=== PATIENT | female | born 1940 | race Caucasian/White ===

== ENCOUNTER 2018-05-03 16:22 | Inpatient (IN) | payer MEDICARE, BC ==
[2018-05-03] MEDS: Acetaminophen 500 MG TAB PO SCH (18:43)
[2018-05-03] MEDS: Ampicillin/Sulbactam 3 GM VIAL IVPB SCH (20:48)
[2018-05-03] MEDS: Gabapentin 300 MG CAP PO SCH (21:02)
[2018-05-03] MEDS: Ascorbic Acid 500 mg Chewable Tablet PO SCH (21:02)
[2018-05-03] MEDS: Atorvastatin Calcium 40 MG TAB PO SCH (21:02)
[2018-05-03] MEDS: Saccharomyces boulardii 250 MG CAP PO SCH (21:03)
[2018-05-03] MEDS: Fish Oil 1,000 MG CAP PO SCH (21:03)
[2018-05-03] MEDS: Bisoprolol Fumarate/HCTZ 10 mg/6.25 mg Tablet PO SCH (21:05)
[2018-05-03] MEDS: traMADol HCl 50 MG TAB PO PRN (21:49)
[2018-05-03] MEDS: Zolpidem Tartrate 5 MG TAB PO PRN (21:50)
[2018-05-04] MEDS: Acetaminophen 500 MG TAB PO SCH ×4 (00:39→16:40)
[2018-05-04] MEDS: Ampicillin/Sulbactam 3 GM VIAL IVPB SCH ×2 (01:56→08:46)
[2018-05-04] MEDS: Ferrous Sulfate 325 MG TAB PO SCH ×2 (08:47→16:40)
[2018-05-04] MEDS: Multivitamin W/ Minerals 1 TAB PO SCH (08:48)
[2018-05-04] MEDS: Allopurinol 100 MG TAB PO SCH (08:48)
[2018-05-04] MEDS: Folic Acid 1 MG TAB PO SCH (08:48)
[2018-05-04] MEDS: Ascorbic Acid 500 mg Chewable Tablet PO SCH ×2 (08:49→20:26)
[2018-05-04] MEDS: NIFEdipine XL 30 MG TAB PO SCH (08:49)
[2018-05-04] MEDS: Calcium Carbonate 500 MG TAB PO SCH (08:49)
[2018-05-04] MEDS: Enoxaparin Sodium 30 MG/0.3 ML SYRINGE SC SCH (08:50)
[2018-05-04] MEDS: Bisoprolol Fumarate/HCTZ 10 mg/6.25 mg Tablet PO SCH ×3 (08:50→20:26)
[2018-05-04] MEDS: Amiodarone 200 MG TAB PO SCH (08:50)
[2018-05-04] MEDS: Saccharomyces boulardii 250 MG CAP PO SCH (09:09)
[2018-05-04] MEDS ORDERED: Saccharomyces boulardii 250 MG CAP PO SCH (10:00)
[2018-05-04] MEDS: Ampicillin/Sulbactam 3 GM in Sodium Chloride 0.9% 100 ML IVPB SCH ×2 (14:17→20:15)
[2018-05-04] MEDS: traMADol HCl 50 MG TAB PO PRN (16:42)
[2018-05-04] MEDS: Fish Oil 1,000 MG CAP PO SCH (20:26)
[2018-05-04] MEDS: Atorvastatin Calcium 40 MG TAB PO SCH (20:26)
[2018-05-04] MEDS: Gabapentin 300 MG CAP PO SCH (20:26)
[2018-05-04] MEDS: Zolpidem Tartrate 5 MG TAB PO PRN (21:42)
[2018-05-05] MEDS: Acetaminophen 500 MG TAB PO SCH ×3 (00:30→13:00)
[2018-05-05] MEDS: Ampicillin/Sulbactam 3 GM in Sodium Chloride 0.9% 100 ML IVPB SCH ×4 (01:30→19:34)
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
[2018-05-05] MEDS: Enoxaparin Sodium 30 MG/0.3 ML SYRINGE SC SCH (09:40)
[2018-05-05] MEDS: HYDROcodone/Acetaminophen 10/325 mg Tablet PO PRN (09:42)
[2018-05-05] MEDS: Saccharomyces boulardii 250 MG CAP PO SCH (09:42)
[2018-05-05] MEDS: Calcium Carbonate 500 MG TAB PO SCH (09:42)
[2018-05-05] MEDS: Multivitamin W/ Minerals 1 TAB PO SCH (09:44)
[2018-05-05] MEDS: NIFEdipine XL 30 MG TAB PO SCH (09:44)
[2018-05-05] MEDS: Allopurinol 100 MG TAB PO SCH (09:45)
[2018-05-05] MEDS: Amiodarone 200 MG TAB PO SCH (09:45)
[2018-05-05] MEDS: Folic Acid 1 MG TAB PO SCH (09:45)
[2018-05-05] MEDS: Ferrous Sulfate 325 MG TAB PO SCH ×2 (09:45→17:07)
[2018-05-05] MEDS: Bisoprolol Fumarate/HCTZ 10 mg/6.25 mg Tablet PO SCH ×2 (09:45→20:32)
[2018-05-05] MEDS: Ascorbic Acid 500 mg Chewable Tablet PO SCH ×2 (09:46→20:32)
[2018-05-05] MEDS: traMADol HCl 50 MG TAB PO PRN (15:22)
[2018-05-05] MEDS: Gabapentin 300 MG CAP PO SCH (20:32)
[2018-05-05] MEDS: Fish Oil 1,000 MG CAP PO SCH (20:32)
[2018-05-05] MEDS: Atorvastatin Calcium 40 MG TAB PO SCH (20:32)
[2018-05-05] MEDS: Zolpidem Tartrate 5 MG TAB PO PRN (21:10)
[2018-05-06] MEDS: Ampicillin/Sulbactam 3 GM in Sodium Chloride 0.9% 100 ML IVPB SCH ×4 (01:26→20:36)
[2018-05-06] MEDS: Folic Acid 1 MG TAB PO SCH (08:15)
[2018-05-06] MEDS: Allopurinol 100 MG TAB PO SCH (08:16)
[2018-05-06] MEDS: Amiodarone 200 MG TAB PO SCH (08:16)
[2018-05-06] MEDS: Saccharomyces boulardii 250 MG CAP PO SCH (08:16)
[2018-05-06] MEDS: Multivitamin W/ Minerals 1 TAB PO SCH (08:16)
[2018-05-06] MEDS: Bisoprolol Fumarate/HCTZ 10 mg/6.25 mg Tablet PO SCH ×2 (08:17→20:39)
[2018-05-06] MEDS: Ascorbic Acid 500 mg Chewable Tablet PO SCH ×2 (08:17→20:40)
[2018-05-06] MEDS: Ferrous Sulfate 325 MG TAB PO SCH ×2 (08:17→17:57)
[2018-05-06] MEDS: Calcium Carbonate 500 MG TAB PO SCH (08:17)
[2018-05-06] MEDS: NIFEdipine XL 30 MG TAB PO SCH (08:17)
[2018-05-06] MEDS: Enoxaparin Sodium 30 MG/0.3 ML SYRINGE SC SCH (08:18)
[2018-05-06] MEDS: traMADol HCl 50 MG TAB PO PRN (08:24)
[2018-05-06] MEDS: HYDROcodone/Acetaminophen 10/325 mg Tablet PO PRN (20:38)
[2018-05-06] MEDS: Atorvastatin Calcium 40 MG TAB PO SCH (20:39)
[2018-05-06] MEDS: Fish Oil 1,000 MG CAP PO SCH (20:39)
[2018-05-06] MEDS: Gabapentin 300 MG CAP PO SCH (20:40)
[2018-05-06] MEDS: Zolpidem Tartrate 5 MG TAB PO PRN (21:05)
[2018-05-07] MEDS: Ampicillin/Sulbactam 3 GM in Sodium Chloride 0.9% 100 ML IVPB SCH ×4 (01:31→20:52)
[2018-05-07 05:30] LABS: #Basophils 0.1 thou/uL (0.0-0.2); #Eosinphils 0.4 thou/uL (0.0-0.7); #Lymphocytes 1.1 thou/uL (1.20-3.40); #Monocytes 0.8 thou/uL (0.11-0.59); #Neutrophils 6.7 thou/uL (1.40-6.50); %Basophils 1.2 % (0.0-1.0); %Eosinophils 4.9 % (0.0-10.0); %Lymphocytes 11.6 % (21.0-51.0); %Monocytes 8.5 % (0.0-10.0); %Neutrophils 73.7 % (42.0-75.0); Hemoglobin 8.7 g/dL (12.0-16.0); Mean Corpuscular HGB CONC 35.1 g/dL (32.0-36.0); Mean Corpuscular Hemoglobin 29.6 pg (27.0-31.0); Mean Corpuscular Volume 84.5 fL (78.0-98.0); Mean Platelet Volume 6.2 fL (7.4-10.4); Platelet Count 396 thou/uL (130-400); Red Blood Cell (RBC) Count 2.93 mill/uL (4.20-5.40)
[2018-05-07 05:46] LABS: ALT (SGPT) 41 U/L (8-55); AST (SGOT) 24 U/L (5-34); Albumin 2.9 g/dL (3.4-4.8); Alkaline Phosphatase 61 U/L (40-150); Anion Gap 12 mmol/L (10-20); BUN (Urea Nitrogen) 19 mg/dL (9.8-20.1); Bilirubin, Total 0.3 mg/dL (0.2-1.2); Calc. Creatinine Clearance 48 mL/min (70-130); Calcium 8.6 mg/dL (7.8-10.44); Carbon Dioxide 25 mmol/L (23-31); Chloride 107 mmol/L (98-107); Estimated GFR-MDRD 65; Globulin 2.6 g/dL (2.4-3.5); Glucose 120 mg/dL (83-110); Potassium 3.2 mmol/L (3.5-5.1); Protein, Total 5.5 g/dL (6.0-8.3); Sodium 141 mmol/L (136-145)
[2018-05-07] MEDS: Folic Acid 1 MG TAB PO SCH (09:07)
[2018-05-07] MEDS: Allopurinol 100 MG TAB PO SCH (09:07)
[2018-05-07] MEDS: Bisoprolol Fumarate/HCTZ 10 mg/6.25 mg Tablet PO SCH ×2 (09:07→20:54)
[2018-05-07] MEDS: Multivitamin W/ Minerals 1 TAB PO SCH (09:08)
[2018-05-07] MEDS: Amiodarone 200 MG TAB PO SCH (09:08)
[2018-05-07] MEDS: NIFEdipine XL 30 MG TAB PO SCH (09:08)
[2018-05-07] MEDS: Calcium Carbonate 500 MG TAB PO SCH (09:08)
[2018-05-07] MEDS: Ascorbic Acid 500 mg Chewable Tablet PO SCH ×2 (09:09→20:54)
[2018-05-07] MEDS: Saccharomyces boulardii 250 MG CAP PO SCH (09:09)
[2018-05-07] MEDS: Ferrous Sulfate 325 MG TAB PO SCH ×2 (09:09→16:53)
[2018-05-07] MEDS: HYDROcodone/Acetaminophen 10/325 mg Tablet PO PRN ×3 (09:13→21:04)
[2018-05-07] MEDS: Enoxaparin Sodium 30 MG/0.3 ML SYRINGE SC SCH (09:32)
[2018-05-07] MEDS ORDERED: Potassium Chloride 20 MEQ TAB PO SCH (10:00)
[2018-05-07] MEDS: traMADol HCl 50 MG TAB PO PRN (12:56)
[2018-05-07] MEDS: Atorvastatin Calcium 40 MG TAB PO SCH (20:54)
[2018-05-07] MEDS: Fish Oil 1,000 MG CAP PO SCH (20:54)
[2018-05-07] MEDS: Gabapentin 300 MG CAP PO SCH (20:54)
[2018-05-07] MEDS: Zolpidem Tartrate 5 MG TAB PO SCH (21:04)
[2018-05-08] MEDS: Potassium Chloride 20 MEQ TAB PO SCH (09:12)
[2018-05-08] MEDS: Saccharomyces boulardii 250 MG CAP PO SCH (09:13)
[2018-05-08] MEDS: Calcium Carbonate 500 MG TAB PO SCH (09:13)
[2018-05-08] MEDS: NIFEdipine XL 30 MG TAB PO SCH (09:13)
[2018-05-08] MEDS: Ferrous Sulfate 325 MG TAB PO SCH ×2 (09:14→18:40)
[2018-05-08] MEDS: Allopurinol 100 MG TAB PO SCH (09:14)
[2018-05-08] MEDS: Multivitamin W/ Minerals 1 TAB PO SCH (09:15)
[2018-05-08] MEDS: Folic Acid 1 MG TAB PO SCH (09:15)
[2018-05-08] MEDS: Bisoprolol Fumarate/HCTZ 10 mg/6.25 mg Tablet PO SCH ×2 (09:15→20:52)
[2018-05-08] MEDS: Amiodarone 200 MG TAB PO SCH (09:15)
[2018-05-08] MEDS: Ascorbic Acid 500 mg Chewable Tablet PO SCH ×2 (09:15→20:54)
[2018-05-08] MEDS: Enoxaparin Sodium 30 MG/0.3 ML SYRINGE SC SCH (09:16)
[2018-05-08] MEDS: traMADol HCl 50 MG TAB PO PRN (10:01)
[2018-05-08] MEDS: HYDROcodone/Acetaminophen 10/325 mg Tablet PO PRN (20:51)
[2018-05-08] MEDS: Gabapentin 300 MG CAP PO SCH (20:53)
[2018-05-08] MEDS: Zolpidem Tartrate 5 MG TAB PO SCH (20:53)
[2018-05-08] MEDS: Fish Oil 1,000 MG CAP PO SCH (20:54)
[2018-05-08] MEDS: Atorvastatin Calcium 40 MG TAB PO SCH (20:54)
[2018-05-09] MEDS: NIFEdipine XL 30 MG TAB PO SCH (08:50)
[2018-05-09] MEDS: Saccharomyces boulardii 250 MG CAP PO SCH (08:51)
[2018-05-09] MEDS: Enoxaparin Sodium 30 MG/0.3 ML SYRINGE SC SCH (08:51)
[2018-05-09] MEDS: Ascorbic Acid 500 mg Chewable Tablet PO SCH ×2 (08:51→20:37)
[2018-05-09] MEDS: Allopurinol 100 MG TAB PO SCH (08:51)
[2018-05-09] MEDS: Amiodarone 200 MG TAB PO SCH (08:52)
[2018-05-09] MEDS: Ferrous Sulfate 325 MG TAB PO SCH ×2 (08:52→17:42)
[2018-05-09] MEDS: Folic Acid 1 MG TAB PO SCH (08:52)
[2018-05-09] MEDS: Multivitamin W/ Minerals 1 TAB PO SCH (08:52)
[2018-05-09] MEDS: Potassium Chloride 20 MEQ TAB PO SCH (08:52)
[2018-05-09] MEDS: Calcium Carbonate 500 MG TAB PO SCH (08:53)
[2018-05-09] MEDS: Bisoprolol Fumarate/HCTZ 10 mg/6.25 mg Tablet PO SCH ×2 (08:58→20:35)
[2018-05-09] MEDS: HYDROcodone/Acetaminophen 10/325 mg Tablet PO PRN ×2 (11:02→20:33)
[2018-05-09] MEDS: Zolpidem Tartrate 5 MG TAB PO SCH (20:33)
[2018-05-09] MEDS: Fish Oil 1,000 MG CAP PO SCH (20:36)
[2018-05-09] MEDS: Gabapentin 300 MG CAP PO SCH (20:37)
[2018-05-09] MEDS: Atorvastatin Calcium 40 MG TAB PO SCH (20:37)
[2018-05-09] MEDS ORDERED: Nitroglycerin 2% Ointment 1 INCH/1 GM Packet ONE (23:45)
[2018-05-10 05:51] LABS: #Basophils 0.1 thou/uL (0.0-0.2); #Eosinphils 0.6 thou/uL (0.0-0.7); #Monocytes 0.8 thou/uL (0.11-0.59); #Neutrophils 6.9 thou/uL (1.40-6.50); %Basophils 1.3 % (0.0-1.0); %Lymphocytes 10.6 % (21.0-51.0); %Monocytes 8.6 % (0.0-10.0); %Neutrophils 73.5 % (42.0-75.0); Hemoglobin 9.4 g/dL (12.0-16.0); Mean Corpuscular HGB CONC 34.5 g/dL (32.0-36.0); Mean Corpuscular Hemoglobin 29.4 pg (27.0-31.0); Mean Corpuscular Volume 85.1 fL (78.0-98.0); Mean Platelet Volume 6.4 fL (7.4-10.4); Platelet Count 298 thou/uL (130-400); RBC Distribution Width 14.4 % (11.5-14.5); Red Blood Cell (RBC) Count 3.19 mill/uL (4.20-5.40); White Blood Cell (WBC) Count 9.4 thou/uL (4.8-10.8)
[2018-05-10 06:20] LABS: Anion Gap 13 mmol/L (10-20); BUN (Urea Nitrogen) 36 mg/dL (9.8-20.1); Calc. Creatinine Clearance 38 mL/min (70-130); Calcium 9.6 mg/dL (7.8-10.44); Carbon Dioxide 27 mmol/L (23-31); Chloride 100 mmol/L (98-107); Estimated GFR-MDRD 50; Glucose 114 mg/dL (83-110); Sodium 136 mmol/L (136-145)
[2018-05-10] MEDS: NIFEdipine XL 30 MG TAB PO SCH (08:24)
[2018-05-10] MEDS: Ferrous Sulfate 325 MG TAB PO SCH ×2 (08:24→17:23)
[2018-05-10] MEDS: Folic Acid 1 MG TAB PO SCH (08:26)
[2018-05-10] MEDS: HYDROcodone/Acetaminophen 10/325 mg Tablet PO PRN ×2 (08:27→20:56)
[2018-05-10] MEDS: Saccharomyces boulardii 250 MG CAP PO SCH (08:27)
[2018-05-10] MEDS: Amiodarone 200 MG TAB PO SCH (08:29)
[2018-05-10] MEDS: Allopurinol 100 MG TAB PO SCH (08:29)
[2018-05-10] MEDS: Multivitamin W/ Minerals 1 TAB PO SCH (08:30)
[2018-05-10] MEDS: Potassium Chloride 20 MEQ TAB PO SCH (08:30)
[2018-05-10] MEDS: Ascorbic Acid 500 mg Chewable Tablet PO SCH ×2 (08:30→22:21)
[2018-05-10] MEDS: Enoxaparin Sodium 30 MG/0.3 ML SYRINGE SC SCH (08:36)
[2018-05-10] MEDS: Bisoprolol Fumarate/HCTZ 10 mg/6.25 mg Tablet PO SCH ×2 (08:36→22:20)
[2018-05-10] MEDS ORDERED: Alendronate Sodium 70 mg Tablet PO SCH (09:00)
[2018-05-10] MEDS: Calcium Carbonate 500 MG TAB PO SCH (09:24)
[2018-05-10] MEDS: Fish Oil 1,000 MG CAP PO SCH (22:20)
[2018-05-10] MEDS: Gabapentin 300 MG CAP PO SCH (22:20)
[2018-05-10] MEDS: Atorvastatin Calcium 40 MG TAB PO SCH (22:21)
[2018-05-10] MEDS: Zolpidem Tartrate 5 MG TAB PO SCH (22:26)
[2018-05-11] MEDS: Alendronate Sodium 70 mg Tablet PO SCH (06:53)
--- NOTE | 2018-05-11 07:21 | RAD ---
CHEST TWO VIEWS: 05/11/2018 COMPARISON: Study done at [facility] on 04/21/2018. FINDINGS: While there are still infiltrates in the right base, they have improved considerably in the interval. The left base is nearly clear, compared to before. There are no new infiltrates. No pneumothorax or substantial pleural effusions are seen. A left-sided central line remains in place. The heart si ze is normal. There is no widening of the mediastinum or shift of the trachea. The right hilum is a little more prominent than usual, but this is probably related to the recent pneumonia. IMPRESSION: Considerable improvement in infiltrates since 04/21/2018. Some residual remains in the right base an d right perihilar region. POS: HOME
[2018-05-11] MEDS: Saccharomyces boulardii 250 MG CAP PO SCH (08:54)
[2018-05-11] MEDS: Amiodarone 200 MG TAB PO SCH (08:55)
[2018-05-11] MEDS: Potassium Chloride 20 MEQ TAB PO SCH (08:55)
[2018-05-11] MEDS: Bisoprolol Fumarate/HCTZ 10 mg/6.25 mg Tablet PO SCH ×2 (08:55→21:25)
[2018-05-11] MEDS: Ascorbic Acid 500 mg Chewable Tablet PO SCH ×2 (08:55→21:24)
[2018-05-11] MEDS: Allopurinol 100 MG TAB PO SCH (08:55)
[2018-05-11] MEDS: NIFEdipine XL 30 MG TAB PO SCH (08:56)
[2018-05-11] MEDS: Calcium Carbonate 500 MG TAB PO SCH (08:56)
[2018-05-11] MEDS: Ferrous Sulfate 325 MG TAB PO SCH ×2 (08:56→19:02)
[2018-05-11] MEDS: Multivitamin W/ Minerals 1 TAB PO SCH (08:56)
[2018-05-11] MEDS: Folic Acid 1 MG TAB PO SCH (08:56)
[2018-05-11] MEDS: Enoxaparin Sodium 30 MG/0.3 ML SYRINGE SC SCH (08:57)
[2018-05-11] MEDS: HYDROcodone/Acetaminophen 10/325 mg Tablet PO PRN ×2 (14:49→21:26)
[2018-05-11] MEDS: Atorvastatin Calcium 40 MG TAB PO SCH (21:24)
[2018-05-11] MEDS: Zolpidem Tartrate 5 MG TAB PO SCH (21:25)
[2018-05-11] MEDS: Fish Oil 1,000 MG CAP PO SCH (21:25)
[2018-05-11] MEDS: Gabapentin 300 MG CAP PO SCH (21:25)
[2018-05-12] MEDS: Enoxaparin Sodium 30 MG/0.3 ML SYRINGE SC SCH (09:13)
[2018-05-12] MEDS: Bisoprolol Fumarate/HCTZ 10 mg/6.25 mg Tablet PO SCH ×2 (09:15→20:41)
[2018-05-12] MEDS: Saccharomyces boulardii 250 MG CAP PO SCH (09:16)
[2018-05-12] MEDS: Calcium Carbonate 500 MG TAB PO SCH (09:16)
[2018-05-12] MEDS: Folic Acid 1 MG TAB PO SCH (09:16)
[2018-05-12] MEDS: Allopurinol 100 MG TAB PO SCH (09:16)
[2018-05-12] MEDS: Ascorbic Acid 500 mg Chewable Tablet PO SCH ×2 (09:17→20:43)
[2018-05-12] MEDS: NIFEdipine XL 30 MG TAB PO SCH (09:17)
[2018-05-12] MEDS: Potassium Chloride 20 MEQ TAB PO SCH (09:23)
[2018-05-12] MEDS: Ferrous Sulfate 325 MG TAB PO SCH ×2 (09:23→16:51)
[2018-05-12] MEDS: Amiodarone 200 MG TAB PO SCH (09:27)
[2018-05-12] MEDS: Multivitamin W/ Minerals 1 TAB PO SCH ×2 (09:27→09:29)
[2018-05-12] MEDS: HYDROcodone/Acetaminophen 10/325 mg Tablet PO PRN ×2 (10:01→20:46)
[2018-05-12] MEDS: Ondansetron ODT 4 MG TAB PO PRN (18:41)
[2018-05-12] MEDS: Fish Oil 1,000 MG CAP PO SCH (20:43)
[2018-05-12] MEDS: Atorvastatin Calcium 40 MG TAB PO SCH (20:43)
[2018-05-12] MEDS: Gabapentin 300 MG CAP PO SCH (20:44)
[2018-05-12] MEDS: Zolpidem Tartrate 5 MG TAB PO SCH (20:45)
[2018-05-13] MEDS: Bisoprolol Fumarate/HCTZ 10 mg/6.25 mg Tablet PO SCH ×2 (08:02→21:29)
[2018-05-13] MEDS: Enoxaparin Sodium 30 MG/0.3 ML SYRINGE SC SCH (08:02)
[2018-05-13] MEDS: Calcium Carbonate 500 MG TAB PO SCH (08:03)
[2018-05-13] MEDS: NIFEdipine XL 30 MG TAB PO SCH (08:03)
[2018-05-13] MEDS: Multivitamin W/ Minerals 1 TAB PO SCH (08:03)
[2018-05-13] MEDS: Potassium Chloride 20 MEQ TAB PO SCH (08:05)
[2018-05-13] MEDS: Amiodarone 200 MG TAB PO SCH (08:07)
[2018-05-13] MEDS: Ascorbic Acid 500 mg Chewable Tablet PO SCH ×2 (08:07→21:29)
[2018-05-13] MEDS: Allopurinol 100 MG TAB PO SCH (08:08)
[2018-05-13] MEDS: Saccharomyces boulardii 250 MG CAP PO SCH (08:08)
[2018-05-13] MEDS: Folic Acid 1 MG TAB PO SCH (08:08)
[2018-05-13] MEDS: HYDROcodone/Acetaminophen 10/325 mg Tablet PO PRN (21:26)
[2018-05-13] MEDS: Zolpidem Tartrate 5 MG TAB PO SCH (21:26)
[2018-05-13] MEDS: Atorvastatin Calcium 40 MG TAB PO SCH (21:28)
[2018-05-13] MEDS: Fish Oil 1,000 MG CAP PO SCH (21:28)
[2018-05-13] MEDS: Gabapentin 300 MG CAP PO SCH (21:29)
[2018-05-14] MEDS: Enoxaparin Sodium 30 MG/0.3 ML SYRINGE SC SCH (08:44)
[2018-05-14] MEDS: Saccharomyces boulardii 250 MG CAP PO SCH (08:45)
[2018-05-14] MEDS: Calcium Carbonate 500 MG TAB PO SCH (08:46)
[2018-05-14] MEDS: Multivitamin W/ Minerals 1 TAB PO SCH (08:46)
[2018-05-14] MEDS: NIFEdipine XL 30 MG TAB PO SCH (08:47)
[2018-05-14] MEDS: Folic Acid 1 MG TAB PO SCH (08:47)
[2018-05-14] MEDS: Amiodarone 200 MG TAB PO SCH (08:48)
[2018-05-14] MEDS: Allopurinol 100 MG TAB PO SCH (08:48)
[2018-05-14] MEDS: Bisoprolol Fumarate/HCTZ 10 mg/6.25 mg Tablet PO SCH ×2 (08:49→20:56)
[2018-05-14] MEDS: Ascorbic Acid 500 mg Chewable Tablet PO SCH ×2 (08:49→20:56)
[2018-05-14] MEDS: Potassium Chloride 20 MEQ TAB PO SCH (08:50)
[2018-05-14] MEDS: HYDROcodone/Acetaminophen 10/325 mg Tablet PO PRN ×2 (10:05→20:55)
--- NOTE | 2018-05-14 16:18 | PRG ---
DATE OF SERVICE: 05/14/2018 PRIMARY CARE PHYSICIAN: Dr. Mina Clark ATTENDING: Veronica Engle M.D. SUBJECTIVE: The patient had vomiting when she took her iron pills. Since stopping the iron supplement, she has not had any vomiting since then. The patient was seen by Dr. Kaiser yesterday, her alicia and subclavian catheter were removed. Her wounds according to physical therapy are looking very good may be ready for graft soon. The right leg is still requiring significant packing for vacuum sponge. She is doing well with physical therapy. She walks about 800 feet the other day, then today had walked about 800 feet with standby assist and without device. The patient is able to manage to go to the restroom using rolling walker. She still requires help with showers. Currently , family is modifying home and installing railing and shower chairs. OBJECTIVE: VITAL SIGNS: Blood pressure of 133/60, temperature of 98.3, pulse of 73, respiratory rate of 18, 02 sat 98% on room air. GENERAL: Patient is alert, oriented, not in respiratory distress. HEENT: Normocephalic, atraumatic. Pupils equally reactive to light. NECK: Supple. Negative for lymphadenopathy. CHEST AND LUNGS: Symmetrical expansion. Clear to auscultation. HEART: Regular rate and rhythm. Negative for murmur. ABDOMEN: Flat, soft, nontender, normoactive bowel sounds. EXTREMITIES: Positive for good pulses, symmetrical movement. Negative pressure wound VAC applied to both lower extremities. Wound VAC setting was 125 mm Hg pressure. Wound measurement on the left thigh length is 13 cm, width 43.5 cm, depth of 0.2 cm with no tunneling. Wound bed has red granulation. Wound healing potential is good. Right thigh medial wound has length of 23.3, width of 31.2 cm, depth of 1.5 cm with tunneling. Wound bed has red granulation with good healing potential. LABORATORY DATA: Laboratory reviewed. ASSESSMENT: 1. Crushing injuries to chest and both lower extremities resulting to deep avulsion wounds to both lower extremities. 2. Infected traumatic wounds with positive growth of Stenotrophomonas maltophilia, bacillus and Enterococcus, resolved. 3. Postoperative adult respiratory distress syndrome. 4. Anemia secondary to blood loss. 5. Respiratory failure, resolved. 6. Congestive heart failure, systolic dysfunction, improved. 7. Rate controlled atrial fibrillation. 8. Hypertension. 9. Physical deconditioning secondary to #1. 10. Nausea and vomiting secondary to iron pills, resolved. 11. The patient will continue with physical, occupational, and wound care therapy. She has an appointment with Dr. Avalos on Thursday. Plan is to do skin grafting. The patient will likely go home with home health for physical, occupational, and wound care. The patient has chosen [facility]. She will need a provider when she gets discharged. KIMMIE
[2018-05-14] MEDS: Ondansetron ODT 4 MG TAB PO PRN (20:50)
[2018-05-14] MEDS: Gabapentin 300 MG CAP PO SCH (20:55)
[2018-05-14] MEDS: Atorvastatin Calcium 40 MG TAB PO SCH (20:56)
[2018-05-14] MEDS: Zolpidem Tartrate 5 MG TAB PO SCH (20:56)
[2018-05-14] MEDS: Fish Oil 1,000 MG CAP PO SCH (20:56)
[2018-05-15 06:03] LABS: Hemoglobin 10.5 g/dL (12.0-16.0); Platelet Count 331 thou/uL (130-400)
[2018-05-15] MEDS: Bisoprolol Fumarate/HCTZ 10 mg/6.25 mg Tablet PO SCH ×2 (09:21→21:39)
[2018-05-15] MEDS: Enoxaparin Sodium 30 MG/0.3 ML SYRINGE SC SCH (09:22)
[2018-05-15] MEDS: Calcium Carbonate 500 MG TAB PO SCH (09:23)
[2018-05-15] MEDS: Saccharomyces boulardii 250 MG CAP PO SCH (09:23)
[2018-05-15] MEDS: Ascorbic Acid 500 mg Chewable Tablet PO SCH ×2 (09:24→21:38)
[2018-05-15] MEDS: Amiodarone 200 MG TAB PO SCH (09:25)
[2018-05-15] MEDS: Potassium Chloride 20 MEQ TAB PO SCH (09:25)
[2018-05-15] MEDS: Allopurinol 100 MG TAB PO SCH (09:26)
[2018-05-15] MEDS: NIFEdipine XL 30 MG TAB PO SCH (09:27)
[2018-05-15] MEDS: Folic Acid 1 MG TAB PO SCH (09:27)
[2018-05-15] MEDS: traMADol HCl 50 MG TAB PO PRN (18:55)
[2018-05-15] MEDS: Ondansetron ODT 4 MG TAB PO PRN (20:18)
[2018-05-15] MEDS: HYDROcodone/Acetaminophen 10/325 mg Tablet PO PRN (21:37)
[2018-05-15] MEDS: Zolpidem Tartrate 5 MG TAB PO SCH (21:37)
[2018-05-15] MEDS: Fish Oil 1,000 MG CAP PO SCH (21:38)
[2018-05-15] MEDS: Gabapentin 300 MG CAP PO SCH (21:38)
[2018-05-15] MEDS: Atorvastatin Calcium 40 MG TAB PO SCH (21:38)
[2018-05-16] MEDS: Potassium Chloride 20 MEQ TAB PO SCH (08:10)
[2018-05-16] MEDS: Ascorbic Acid 500 mg Chewable Tablet PO SCH ×2 (09:07→21:28)
[2018-05-16] MEDS: Saccharomyces boulardii 250 MG CAP PO SCH (09:07)
[2018-05-16] MEDS: Allopurinol 100 MG TAB PO SCH (09:08)
[2018-05-16] MEDS: Multivitamin W/ Minerals 1 TAB PO SCH (09:08)
[2018-05-16] MEDS: Calcium Carbonate 500 MG TAB PO SCH (09:11)
[2018-05-16] MEDS: Amiodarone 200 MG TAB PO SCH (09:11)
[2018-05-16] MEDS: Folic Acid 1 MG TAB PO SCH (09:11)
[2018-05-16] MEDS: NIFEdipine XL 30 MG TAB PO SCH (09:12)
[2018-05-16] MEDS: Enoxaparin Sodium 30 MG/0.3 ML SYRINGE SC SCH (09:13)
[2018-05-16] MEDS: Bisoprolol Fumarate/HCTZ 10 mg/6.25 mg Tablet PO SCH ×2 (09:18→21:27)
[2018-05-16] MEDS: traMADol HCl 50 MG TAB PO PRN (14:23)
[2018-05-16] MEDS: Ondansetron ODT 4 MG TAB PO PRN (18:05)
[2018-05-16] MEDS: HYDROcodone/Acetaminophen 10/325 mg Tablet PO PRN (21:27)
[2018-05-16] MEDS: Gabapentin 300 MG CAP PO SCH (21:28)
[2018-05-16] MEDS: Fish Oil 1,000 MG CAP PO SCH (21:28)
[2018-05-16] MEDS: Atorvastatin Calcium 40 MG TAB PO SCH (21:28)
[2018-05-16] MEDS ORDERED: Zolpidem Tartrate 5 MG TAB PO SCH (21:30)
[2018-05-17 04:49] LABS: Hemoglobin 10.8 g/dL (12.0-16.0); Platelet Count 329 thou/uL (130-400)
[2018-05-17] MEDS: HYDROcodone/Acetaminophen 10/325 mg Tablet PO PRN ×2 (08:18→20:28)
[2018-05-17] MEDS: Allopurinol 100 MG TAB PO SCH (08:20)
[2018-05-17] MEDS: Bisoprolol Fumarate/HCTZ 10 mg/6.25 mg Tablet PO SCH ×2 (08:20→21:55)
[2018-05-17] MEDS: Saccharomyces boulardii 250 MG CAP PO SCH (08:21)
[2018-05-17] MEDS: Folic Acid 1 MG TAB PO SCH (08:22)
[2018-05-17] MEDS: Enoxaparin Sodium 30 MG/0.3 ML SYRINGE SC SCH (08:22)
[2018-05-17] MEDS: Ascorbic Acid 500 mg Chewable Tablet PO SCH ×2 (08:22→21:55)
[2018-05-17] MEDS: Potassium Chloride 20 MEQ TAB PO SCH (08:22)
[2018-05-17] MEDS: NIFEdipine XL 30 MG TAB PO SCH (08:23)
[2018-05-17] MEDS: Multivitamin W/ Minerals 1 TAB PO SCH (08:24)
[2018-05-17] MEDS: Calcium Carbonate 500 MG TAB PO SCH (08:24)
[2018-05-17] MEDS: Amiodarone 200 MG TAB PO SCH (08:24)
[2018-05-17] MEDS: Ondansetron ODT 4 MG TAB PO PRN (11:56)
[2018-05-17] MEDS: Atorvastatin Calcium 40 MG TAB PO SCH (21:55)
[2018-05-17] MEDS: Fish Oil 1,000 MG CAP PO SCH (21:55)
[2018-05-17] MEDS: Zolpidem Tartrate 5 MG TAB PO SCH (21:55)
[2018-05-17] MEDS: Gabapentin 300 MG CAP PO SCH (21:55)
[2018-05-18] MEDS: Alendronate Sodium 70 mg Tablet PO SCH (05:38)
[2018-05-18] MEDS: Potassium Chloride 20 MEQ TAB PO SCH (08:20)
[2018-05-18] MEDS: Calcium Carbonate 500 MG TAB PO SCH (08:21)
[2018-05-18] MEDS: Multivitamin W/ Minerals 1 TAB PO SCH (08:21)
[2018-05-18] MEDS: Ascorbic Acid 500 mg Chewable Tablet PO SCH ×2 (08:21→21:54)
[2018-05-18] MEDS: Amiodarone 200 MG TAB PO SCH (08:21)
[2018-05-18] MEDS: Folic Acid 1 MG TAB PO SCH (08:22)
[2018-05-18] MEDS: Allopurinol 100 MG TAB PO SCH (08:22)
[2018-05-18] MEDS: NIFEdipine XL 30 MG TAB PO SCH (08:23)
[2018-05-18] MEDS: Saccharomyces boulardii 250 MG CAP PO SCH (08:23)
[2018-05-18] MEDS: Bisoprolol Fumarate/HCTZ 10 mg/6.25 mg Tablet PO SCH ×2 (08:24→21:54)
[2018-05-18] MEDS: Enoxaparin Sodium 30 MG/0.3 ML SYRINGE SC SCH (08:24)
[2018-05-18] MEDS: Gabapentin 300 MG CAP PO SCH ×2 (09:15→21:54)
[2018-05-18] MEDS: HYDROcodone/Acetaminophen 10/325 mg Tablet PO PRN ×2 (12:11→20:34)
[2018-05-18] MEDS: ALPRAZolam 0.5 MG TAB PO SCH (21:54)
[2018-05-18] MEDS: Atorvastatin Calcium 40 MG TAB PO SCH (21:54)
[2018-05-18] MEDS: Fish Oil 1,000 MG CAP PO SCH (21:54)
[2018-05-18] MEDS: Zolpidem Tartrate 5 MG TAB PO SCH (21:55)
[2018-05-19 05:26] LABS: Hemoglobin 9.8 g/dL (12.0-16.0); Platelet Count 297 thou/uL (130-400)
[2018-05-19] MEDS: Allopurinol 100 MG TAB PO SCH (09:26)
[2018-05-19] MEDS: Bisoprolol Fumarate/HCTZ 10 mg/6.25 mg Tablet PO SCH ×2 (09:26→21:53)
[2018-05-19] MEDS: Enoxaparin Sodium 30 MG/0.3 ML SYRINGE SC SCH (09:26)
[2018-05-19] MEDS: Amiodarone 200 MG TAB PO SCH (09:27)
[2018-05-19] MEDS: Ascorbic Acid 500 mg Chewable Tablet PO SCH ×2 (09:27→21:54)
[2018-05-19] MEDS: Folic Acid 1 MG TAB PO SCH (09:27)
[2018-05-19] MEDS: Calcium Carbonate 500 MG TAB PO SCH (09:28)
[2018-05-19] MEDS: Potassium Chloride 20 MEQ TAB PO SCH (09:28)
[2018-05-19] MEDS: Multivitamin W/ Minerals 1 TAB PO SCH (09:28)
[2018-05-19] MEDS: Gabapentin 300 MG CAP PO SCH ×2 (09:28→21:54)
[2018-05-19] MEDS: NIFEdipine XL 30 MG TAB PO SCH (09:28)
[2018-05-19] MEDS: Saccharomyces boulardii 250 MG CAP PO SCH (09:28)
[2018-05-19] MEDS: HYDROcodone/Acetaminophen 10/325 mg Tablet PO PRN ×2 (13:04→21:54)
[2018-05-19] MEDS: ALPRAZolam 0.5 MG TAB PO SCH (21:54)
[2018-05-19] MEDS: Fish Oil 1,000 MG CAP PO SCH (21:54)
[2018-05-19] MEDS: Atorvastatin Calcium 40 MG TAB PO SCH (21:54)
[2018-05-20] MEDS: Ondansetron ODT 4 MG TAB PO PRN (06:41)
[2018-05-20] MEDS: Enoxaparin Sodium 30 MG/0.3 ML SYRINGE SC SCH (09:22)
[2018-05-20] MEDS: Potassium Chloride 20 MEQ TAB PO SCH (09:23)
[2018-05-20] MEDS: Gabapentin 300 MG CAP PO SCH ×2 (09:23→21:19)
[2018-05-20] MEDS: Ascorbic Acid 500 mg Chewable Tablet PO SCH ×2 (09:23→21:19)
[2018-05-20] MEDS: Amiodarone 200 MG TAB PO SCH (09:23)
[2018-05-20] MEDS: Bisoprolol Fumarate/HCTZ 10 mg/6.25 mg Tablet PO SCH ×2 (09:23→21:20)
[2018-05-20] MEDS: NIFEdipine XL 30 MG TAB PO SCH (09:24)
[2018-05-20] MEDS: Calcium Carbonate 500 MG TAB PO SCH (09:24)
[2018-05-20] MEDS: Allopurinol 100 MG TAB PO SCH (09:24)
[2018-05-20] MEDS: Folic Acid 1 MG TAB PO SCH (09:24)
[2018-05-20] MEDS: Multivitamin W/ Minerals 1 TAB PO SCH (09:24)
[2018-05-20] MEDS: Saccharomyces boulardii 250 MG CAP PO SCH (09:24)
[2018-05-20] MEDS: HYDROcodone/Acetaminophen 10/325 mg Tablet PO PRN ×2 (10:47→21:22)
[2018-05-20] MEDS: Fish Oil 1,000 MG CAP PO SCH (21:19)
[2018-05-20] MEDS: Atorvastatin Calcium 40 MG TAB PO SCH (21:19)
[2018-05-20] MEDS: ALPRAZolam 0.5 MG TAB PO SCH (21:20)
[2018-05-21 05:46] LABS: Hemoglobin 10.2 g/dL (12.0-16.0); Platelet Count 220 thou/uL (130-400)
[2018-05-21] MEDS: Enoxaparin Sodium 30 MG/0.3 ML SYRINGE SC SCH (08:49)
[2018-05-21] MEDS: Bisoprolol Fumarate/HCTZ 10 mg/6.25 mg Tablet PO SCH ×2 (08:49→20:54)
[2018-05-21] MEDS: Allopurinol 100 MG TAB PO SCH (08:50)
[2018-05-21] MEDS: Saccharomyces boulardii 250 MG CAP PO SCH (08:50)
[2018-05-21] MEDS: Folic Acid 1 MG TAB PO SCH (08:51)
[2018-05-21] MEDS: Calcium Carbonate 500 MG TAB PO SCH (08:51)
[2018-05-21] MEDS: Potassium Chloride 20 MEQ TAB PO SCH (08:51)
[2018-05-21] MEDS: Amiodarone 200 MG TAB PO SCH (08:51)
[2018-05-21] MEDS: NIFEdipine XL 30 MG TAB PO SCH (08:51)
[2018-05-21] MEDS: Ascorbic Acid 500 mg Chewable Tablet PO SCH (08:52)
[2018-05-21] MEDS: Gabapentin 300 MG CAP PO SCH ×2 (08:52→20:55)
[2018-05-21] MEDS: Multivitamin W/ Minerals 1 TAB PO SCH (08:52)
[2018-05-21] MEDS: HYDROcodone/Acetaminophen 10/325 mg Tablet PO PRN ×2 (12:33→20:56)
[2018-05-21] MEDS: Atorvastatin Calcium 40 MG TAB PO SCH (20:54)
[2018-05-21] MEDS: ALPRAZolam 0.5 MG TAB PO SCH (20:54)
[2018-05-21] MEDS: Zolpidem Tartrate 5 MG TAB PO SCH (20:55)
[2018-05-22] MEDS: NIFEdipine XL 30 MG TAB PO SCH (09:08)
[2018-05-22] MEDS: Bisoprolol Fumarate/HCTZ 10 mg/6.25 mg Tablet PO SCH ×2 (09:08→21:56)
[2018-05-22] MEDS: Amiodarone 200 MG TAB PO SCH (09:09)
[2018-05-22] MEDS: Multivitamin W/ Minerals 1 TAB PO SCH (09:10)
[2018-05-22] MEDS: Gabapentin 300 MG CAP PO SCH ×2 (09:10→21:55)
[2018-05-22] MEDS: Allopurinol 100 MG TAB PO SCH (09:10)
[2018-05-22] MEDS: Potassium Chloride 20 MEQ TAB PO SCH (09:11)
[2018-05-22] MEDS: Enoxaparin Sodium 30 MG/0.3 ML SYRINGE SC SCH (09:29)
[2018-05-22] MEDS: Polyethylene Glycol 3350 17 GM Packet PO PRN (15:34)
[2018-05-22] MEDS ORDERED: Mag-Al Plus 1200 MG/1200 MG/120 MG/30 ML UDCUP PO PRN (21:49)
[2018-05-22] MEDS: ALPRAZolam 0.5 MG TAB PO SCH (21:54)
[2018-05-22] MEDS: Zolpidem Tartrate 5 MG TAB PO SCH (21:55)
[2018-05-22] MEDS: Atorvastatin Calcium 40 MG TAB PO SCH (21:56)
[2018-05-22] MEDS: HYDROcodone/Acetaminophen 10/325 mg Tablet PO PRN (21:57)
[2018-05-23 05:33] LABS: Hemoglobin 9.8 g/dL (12.0-16.0); Platelet Count 247 thou/uL (130-400)
[2018-05-23] MEDS: Potassium Chloride 20 MEQ TAB PO SCH (09:22)
[2018-05-23] MEDS: Multivitamin W/ Minerals 1 TAB PO SCH (09:22)
[2018-05-23] MEDS: NIFEdipine XL 30 MG TAB PO SCH (09:22)
[2018-05-23] MEDS: Gabapentin 300 MG CAP PO SCH ×2 (09:22→20:46)
[2018-05-23] MEDS: Allopurinol 100 MG TAB PO SCH (09:24)
[2018-05-23] MEDS: Bisoprolol Fumarate/HCTZ 10 mg/6.25 mg Tablet PO SCH ×2 (09:24→21:12)
[2018-05-23] MEDS: Amiodarone 200 MG TAB PO SCH (09:24)
[2018-05-23] MEDS: Enoxaparin Sodium 30 MG/0.3 ML SYRINGE SC SCH (09:24)
[2018-05-23] MEDS: Zolpidem Tartrate 5 MG TAB PO SCH (20:46)
[2018-05-23] MEDS: ALPRAZolam 0.5 MG TAB PO SCH (20:46)
[2018-05-23] MEDS: Atorvastatin Calcium 40 MG TAB PO SCH (20:46)
[2018-05-23] MEDS: HYDROcodone/Acetaminophen 10/325 mg Tablet PO PRN (20:47)
[2018-05-24] MEDS: Gabapentin 300 MG CAP PO SCH ×2 (09:39→21:07)
[2018-05-24] MEDS: Bisoprolol Fumarate/HCTZ 10 mg/6.25 mg Tablet PO SCH ×2 (09:39→21:06)
[2018-05-24] MEDS: Allopurinol 100 MG TAB PO SCH (09:39)
[2018-05-24] MEDS: Multivitamin W/ Minerals 1 TAB PO SCH (09:40)
[2018-05-24] MEDS: NIFEdipine XL 30 MG TAB PO SCH (09:40)
[2018-05-24] MEDS: Potassium Chloride 20 MEQ TAB PO SCH (09:40)
[2018-05-24] MEDS: Amiodarone 200 MG TAB PO SCH (09:40)
[2018-05-24] MEDS: Enoxaparin Sodium 30 MG/0.3 ML SYRINGE SC SCH (09:42)
[2018-05-24] MEDS: HYDROcodone/Acetaminophen 10/325 mg Tablet PO PRN ×2 (13:49→21:08)
[2018-05-24] MEDS: ALPRAZolam 0.5 MG TAB PO SCH (21:07)
[2018-05-24] MEDS: Atorvastatin Calcium 40 MG TAB PO SCH (21:07)
[2018-05-24] MEDS: Zolpidem Tartrate 5 MG TAB PO SCH (21:07)
[2018-05-25 05:31] LABS: Hemoglobin 10.2 g/dL (12.0-16.0); Platelet Count 249 thou/uL (130-400)
[2018-05-25] MEDS: Alendronate Sodium 70 mg Tablet PO SCH (06:04)
[2018-05-25] MEDS: Gabapentin 300 MG CAP PO SCH ×2 (08:59→21:10)
[2018-05-25] MEDS: Multivitamin W/ Minerals 1 TAB PO SCH (08:59)
[2018-05-25] MEDS: NIFEdipine XL 30 MG TAB PO SCH (08:59)
[2018-05-25] MEDS: Potassium Chloride 20 MEQ TAB PO SCH (08:59)
[2018-05-25] MEDS: Amiodarone 200 MG TAB PO SCH (08:59)
[2018-05-25] MEDS: Allopurinol 100 MG TAB PO SCH (08:59)
[2018-05-25] MEDS: Bisoprolol Fumarate/HCTZ 10 mg/6.25 mg Tablet PO SCH ×2 (09:00→21:10)
[2018-05-25] MEDS: Enoxaparin Sodium 40 MG/0.4 ML SYRINGE SC SCH (09:02)
[2018-05-25] MEDS: Atorvastatin Calcium 40 MG TAB PO SCH (21:10)
[2018-05-25] MEDS: HYDROcodone/Acetaminophen 10/325 mg Tablet PO PRN (21:10)
[2018-05-25] MEDS: ALPRAZolam 0.5 MG TAB PO SCH (21:10)
[2018-05-25] MEDS: Zolpidem Tartrate 5 MG TAB PO SCH (21:12)
[2018-05-25] MEDS: Ondansetron ODT 4 MG TAB PO PRN (21:17)
[2018-05-26] MEDS: Potassium Chloride 20 MEQ TAB PO SCH (08:42)
[2018-05-26] MEDS: Allopurinol 100 MG TAB PO SCH (08:43)
[2018-05-26] MEDS: NIFEdipine XL 30 MG TAB PO SCH (08:44)
[2018-05-26] MEDS: Amiodarone 200 MG TAB PO SCH (08:44)
[2018-05-26] MEDS: Bisoprolol Fumarate/HCTZ 10 mg/6.25 mg Tablet PO SCH ×2 (08:44→20:08)
[2018-05-26] MEDS: Multivitamin W/ Minerals 1 TAB PO SCH (08:45)
[2018-05-26] MEDS: Gabapentin 300 MG CAP PO SCH ×2 (08:45→20:09)
[2018-05-26] MEDS: Enoxaparin Sodium 40 MG/0.4 ML SYRINGE SC SCH (08:45)
[2018-05-26] MEDS: HYDROcodone/Acetaminophen 10/325 mg Tablet PO PRN ×2 (08:52→20:07)
[2018-05-26] MEDS: ALPRAZolam 0.5 MG TAB PO SCH (20:09)
[2018-05-26] MEDS: Atorvastatin Calcium 40 MG TAB PO SCH (20:09)
[2018-05-26] MEDS: Zolpidem Tartrate 5 MG TAB PO SCH (21:20)
--- NOTE | 2018-05-26 22:34 | ULT ---
ULTRASOUND OF THE LEFT THIGH 05/26/18 Ultrasonography of a limited area of the left thigh around a palpable abnormality was done. There is indeed a complex appearing soft tissue mass present there that measures 1.1 x 1.8 x 2.4 cm. There are both solid and cystic components internally. The technologist noted that there was no real blood jerrod w in this mass which is encouraging. I do not know if there is any history of trauma to think that th is might be a hematoma. The internal soft tissue elements really do not resemble that, however. In general, thigh masses in adults are potentially serious and sometimes are sarcomas. The fact that there is no blood flow mitigates against that somewhat. Correlate with clinical history and consider if the patient might be a candidate for an MRI if the mass does not resolve quickly on its own. IMPRESSION: 1.8 cm complex mass of the thigh, but without obvious internal blood flow. Code T POS: HOME
[2018-05-27 05:06] LABS: Hemoglobin 10.4 g/dL (12.0-16.0); Platelet Count 238 thou/uL (130-400)
[2018-05-27] MEDS: Enoxaparin Sodium 40 MG/0.4 ML SYRINGE SC SCH (08:57)
[2018-05-27] MEDS: Bisoprolol Fumarate/HCTZ 10 mg/6.25 mg Tablet PO SCH ×2 (08:57→21:22)
[2018-05-27] MEDS: Potassium Chloride 20 MEQ TAB PO SCH (08:58)
[2018-05-27] MEDS: Allopurinol 100 MG TAB PO SCH (08:58)
[2018-05-27] MEDS: NIFEdipine XL 30 MG TAB PO SCH (08:59)
[2018-05-27] MEDS: Multivitamin W/ Minerals 1 TAB PO SCH (08:59)
[2018-05-27] MEDS: Amiodarone 200 MG TAB PO SCH (08:59)
[2018-05-27] MEDS: Gabapentin 300 MG CAP PO SCH ×2 (08:59→21:22)
[2018-05-27] MEDS: traMADol HCl 50 MG TAB PO PRN (15:40)
[2018-05-27] MEDS: Zolpidem Tartrate 5 MG TAB PO SCH (21:22)
[2018-05-27] MEDS: Atorvastatin Calcium 40 MG TAB PO SCH (21:22)
[2018-05-27] MEDS: ALPRAZolam 0.5 MG TAB PO SCH (21:23)
[2018-05-28] MEDS: traMADol HCl 50 MG TAB PO PRN (01:16)
[2018-05-28] MEDS: Potassium Chloride 20 MEQ TAB PO SCH (09:15)
[2018-05-28] MEDS: Allopurinol 100 MG TAB PO SCH (09:15)
[2018-05-28] MEDS: NIFEdipine XL 30 MG TAB PO SCH (09:16)
[2018-05-28] MEDS: Gabapentin 300 MG CAP PO SCH ×2 (09:16→20:44)
[2018-05-28] MEDS: Amiodarone 200 MG TAB PO SCH (09:16)
[2018-05-28] MEDS: Enoxaparin Sodium 40 MG/0.4 ML SYRINGE SC SCH (09:17)
[2018-05-28] MEDS: Multivitamin W/ Minerals 1 TAB PO SCH (09:17)
[2018-05-28] MEDS: Bisoprolol Fumarate/HCTZ 10 mg/6.25 mg Tablet PO SCH ×2 (09:17→20:44)
[2018-05-28] MEDS: HYDROcodone/Acetaminophen 10/325 mg Tablet PO PRN ×2 (10:34→20:44)
[2018-05-28] MEDS: Ondansetron ODT 4 MG TAB PO PRN (15:44)
[2018-05-28] MEDS: ALPRAZolam 0.5 MG TAB PO SCH (20:44)
[2018-05-28] MEDS: Zolpidem Tartrate 5 MG TAB PO SCH (20:44)
[2018-05-28] MEDS: Atorvastatin Calcium 40 MG TAB PO SCH (20:44)
[2018-05-29 05:00] LABS: Hemoglobin 9.3 g/dL (12.0-16.0); Platelet Count 206 thou/uL (130-400)
[2018-05-29] MEDS: NIFEdipine XL 30 MG TAB PO SCH (09:01)
[2018-05-29] MEDS: Multivitamin W/ Minerals 1 TAB PO SCH (09:01)
[2018-05-29] MEDS: Gabapentin 300 MG CAP PO SCH ×2 (09:01→21:18)
[2018-05-29] MEDS: Bisoprolol Fumarate/HCTZ 10 mg/6.25 mg Tablet PO SCH ×2 (09:02→21:16)
[2018-05-29] MEDS: Amiodarone 200 MG TAB PO SCH (09:02)
[2018-05-29] MEDS: Enoxaparin Sodium 40 MG/0.4 ML SYRINGE SC SCH (09:02)
[2018-05-29] MEDS: Potassium Chloride 20 MEQ TAB PO SCH (09:03)
[2018-05-29] MEDS: Allopurinol 100 MG TAB PO SCH (09:03)
[2018-05-29] MEDS: Zolpidem Tartrate 5 MG TAB PO SCH (21:16)
[2018-05-29] MEDS: HYDROcodone/Acetaminophen 10/325 mg Tablet PO PRN (21:17)
[2018-05-29] MEDS: Atorvastatin Calcium 40 MG TAB PO SCH (21:18)
[2018-05-29] MEDS: ALPRAZolam 0.5 MG TAB PO SCH (21:18)
[2018-05-30] MEDS: Allopurinol 100 MG TAB PO SCH (08:54)
[2018-05-30] MEDS: Bisoprolol Fumarate/HCTZ 10 mg/6.25 mg Tablet PO SCH ×2 (08:54→21:44)
[2018-05-30] MEDS: Multivitamin W/ Minerals 1 TAB PO SCH (08:55)
[2018-05-30] MEDS: Enoxaparin Sodium 40 MG/0.4 ML SYRINGE SC SCH (08:55)
[2018-05-30] MEDS: NIFEdipine XL 30 MG TAB PO SCH (08:55)
[2018-05-30] MEDS: Amiodarone 200 MG TAB PO SCH (08:55)
[2018-05-30] MEDS: Gabapentin 300 MG CAP PO SCH ×2 (08:55→21:45)
[2018-05-30] MEDS: Potassium Chloride 20 MEQ TAB PO SCH (08:56)
[2018-05-30] MEDS: traMADol HCl 50 MG TAB PO PRN (17:26)
[2018-05-30] MEDS: Zolpidem Tartrate 5 MG TAB PO SCH (21:45)
[2018-05-30] MEDS: Atorvastatin Calcium 40 MG TAB PO SCH (21:45)
[2018-05-30] MEDS: HYDROcodone/Acetaminophen 10/325 mg Tablet PO PRN (21:46)
[2018-05-30] MEDS: ALPRAZolam 0.5 MG TAB PO SCH (21:46)
[2018-05-31 05:16] LABS: Hemoglobin 9.2 g/dL (12.0-16.0); Platelet Count 201 thou/uL (130-400)
[2018-05-31] MEDS: NIFEdipine XL 30 MG TAB PO SCH (08:40)
[2018-05-31] MEDS: Potassium Chloride 20 MEQ TAB PO SCH (08:40)
[2018-05-31] MEDS: Multivitamin W/ Minerals 1 TAB PO SCH (08:40)
[2018-05-31] MEDS: Gabapentin 300 MG CAP PO SCH ×2 (08:41→21:50)
[2018-05-31] MEDS: Allopurinol 100 MG TAB PO SCH (08:41)
[2018-05-31] MEDS: Amiodarone 200 MG TAB PO SCH (08:41)
[2018-05-31] MEDS: Bisoprolol Fumarate/HCTZ 10 mg/6.25 mg Tablet PO SCH ×2 (08:41→21:49)
[2018-05-31] MEDS: Enoxaparin Sodium 40 MG/0.4 ML SYRINGE SC SCH (08:42)
[2018-05-31] MEDS: HYDROcodone/Acetaminophen 10/325 mg Tablet PO PRN ×2 (09:58→21:52)
[2018-05-31] MEDS: traMADol HCl 50 MG TAB PO PRN (14:07)
[2018-05-31] MEDS: Zolpidem Tartrate 5 MG TAB PO SCH (21:50)
[2018-05-31] MEDS: Atorvastatin Calcium 40 MG TAB PO SCH (21:52)
[2018-05-31] MEDS: ALPRAZolam 0.5 MG TAB PO SCH (21:52)
[2018-06-01] MEDS: Alendronate Sodium 70 mg Tablet PO SCH (06:08)
[2018-06-01] MEDS: Enoxaparin Sodium 40 MG/0.4 ML SYRINGE SC SCH (08:38)
[2018-06-01] MEDS: Multivitamin W/ Minerals 1 TAB PO SCH (08:39)
[2018-06-01] MEDS: Polyethylene Glycol 3350 17 GM Packet PO PRN (08:39)
[2018-06-01] MEDS: Allopurinol 100 MG TAB PO SCH (08:40)
[2018-06-01] MEDS: NIFEdipine XL 30 MG TAB PO SCH (08:40)
[2018-06-01] MEDS: Amiodarone 200 MG TAB PO SCH (08:40)
[2018-06-01] MEDS: Gabapentin 300 MG CAP PO SCH ×2 (08:40→21:09)
[2018-06-01] MEDS: Potassium Chloride 20 MEQ TAB PO SCH (08:40)
[2018-06-01] MEDS: Bisoprolol Fumarate/HCTZ 10 mg/6.25 mg Tablet PO SCH ×2 (08:41→21:09)
[2018-06-01] MEDS: Ondansetron ODT 4 MG TAB PO PRN (10:23)
[2018-06-01] MEDS: Zolpidem Tartrate 5 MG TAB PO SCH (21:09)
[2018-06-01] MEDS: ALPRAZolam 0.5 MG TAB PO SCH (21:09)
[2018-06-01] MEDS: Atorvastatin Calcium 40 MG TAB PO SCH (21:09)
[2018-06-01] MEDS: HYDROcodone/Acetaminophen 10/325 mg Tablet PO PRN (21:10)
[2018-06-02 05:20] LABS: Hemoglobin 10.5 g/dL (12.0-16.0); Platelet Count 199 thou/uL (130-400)
[2018-06-02 08:13] LABS: Calc. Creatinine Clearance 31 mL/min (70-130); Estimated GFR-MDRD 39
[2018-06-02 08:14] LABS: #Basophils 0.1 thou/uL (0.0-0.2); #Eosinphils 0.3 thou/uL (0.0-0.7); #Monocytes 1.2 thou/uL (0.11-0.59); #Neutrophils 9.2 thou/uL (1.40-6.50); %Basophils 1.2 % (0.0-1.0); %Eosinophils 2.7 % (0.0-10.0); %Lymphocytes 8.2 % (21.0-51.0); %Neutrophils 77.8 % (42.0-75.0); Hemoglobin 10.5 g/dL (12.0-16.0); Mean Corpuscular HGB CONC 35.5 g/dL (32.0-36.0); Mean Corpuscular Volume 84.7 fL (78.0-98.0); Mean Platelet Volume 6.3 fL (7.4-10.4); Platelet Count 199 thou/uL (130-400); RBC Distribution Width 13.3 % (11.5-14.5); Red Blood Cell (RBC) Count 3.51 mill/uL (4.20-5.40); White Blood Cell (WBC) Count 11.8 thou/uL (4.8-10.8)
[2018-06-02 08:29] LABS: ALT (SGPT) 13 U/L (8-55); AST (SGOT) 19 U/L (5-34); Albumin 3.1 g/dL (3.4-4.8); Alkaline Phosphatase 53 U/L (40-150); Anion Gap 18 mmol/L (10-20); BUN (Urea Nitrogen) 31 mg/dL (9.8-20.1); Bilirubin, Total 0.4 mg/dL (0.2-1.2); Calcium 9.1 mg/dL (7.8-10.44); Carbon Dioxide 21 mmol/L (23-31); Chloride 97 mmol/L (98-107); Globulin 2.6 g/dL (2.4-3.5); Glucose 98 mg/dL (83-110); Potassium 4.6 mmol/L (3.5-5.1); Protein, Total 5.7 g/dL (6.0-8.3); Sodium 131 mmol/L (136-145)
[2018-06-02] MEDS: Bisoprolol Fumarate/HCTZ 10 mg/6.25 mg Tablet PO SCH ×2 (08:53→20:16)
[2018-06-02] MEDS: NIFEdipine XL 30 MG TAB PO SCH (08:53)
[2018-06-02] MEDS: Gabapentin 300 MG CAP PO SCH ×2 (08:55→20:17)
[2018-06-02] MEDS: Allopurinol 100 MG TAB PO SCH (08:55)
[2018-06-02] MEDS: Potassium Chloride 20 MEQ TAB PO SCH (08:55)
[2018-06-02] MEDS: Enoxaparin Sodium 40 MG/0.4 ML SYRINGE SC SCH (08:56)
[2018-06-02] MEDS: Multivitamin W/ Minerals 1 TAB PO SCH (08:56)
[2018-06-02] MEDS: Amiodarone 200 MG TAB PO SCH (08:56)
[2018-06-02] MEDS: HYDROcodone/Acetaminophen 10/325 mg Tablet PO PRN ×2 (09:01→20:17)
[2018-06-02] MEDS: traMADol HCl 50 MG TAB PO PRN (14:25)
[2018-06-02 14:34] LABS: Bilirubin Negative (Negative); Blood, Urine Negative (Negative); Clarity Clear (Clear); Glucose, Urine (Dipstick) Negative (Negative); Leukocyte Trace (Negative); Nitrite Negative (Negative); Protein, Urine (Dipstick) Trace mg/dL (Neg-Trace); Urobilinogen 0.2 mg/dL (0.2-1.0)
[2018-06-02 14:38] LABS: Bacteria/HPF Rare-Few HPF (None Seen); RBC/HPF 0-3 HPF (0-3); Squamous Epithelial 0-3 HPF (0-3); WBC/HPF 0-3 HPF (0-3)
[2018-06-02] MEDS: Atorvastatin Calcium 40 MG TAB PO SCH (20:17)
[2018-06-02] MEDS: ALPRAZolam 0.5 MG TAB PO SCH (20:20)
[2018-06-02] MEDS: Zolpidem Tartrate 5 MG TAB PO PRN (20:50)
[2018-06-03] MEDS: Enoxaparin Sodium 40 MG/0.4 ML SYRINGE SC SCH (08:33)
[2018-06-03] MEDS: NIFEdipine XL 30 MG TAB PO SCH (08:35)
[2018-06-03] MEDS: Potassium Chloride 20 MEQ TAB PO SCH (08:35)
[2018-06-03] MEDS: Bisoprolol Fumarate/HCTZ 10 mg/6.25 mg Tablet PO SCH ×2 (08:35→20:20)
[2018-06-03] MEDS: Multivitamin W/ Minerals 1 TAB PO SCH (08:35)
[2018-06-03] MEDS: Amiodarone 200 MG TAB PO SCH (08:36)
[2018-06-03] MEDS: Allopurinol 100 MG TAB PO SCH (08:36)
[2018-06-03] MEDS: Gabapentin 300 MG CAP PO SCH ×2 (08:37→20:21)
[2018-06-03] MEDS: HYDROcodone/Acetaminophen 10/325 mg Tablet PO PRN ×2 (14:37→20:26)
[2018-06-03] MEDS: Atorvastatin Calcium 40 MG TAB PO SCH (20:21)
[2018-06-03] MEDS: ALPRAZolam 0.5 MG TAB PO SCH (20:21)
[2018-06-04] MEDS: Zolpidem Tartrate 5 MG TAB PO PRN ×2 (01:01→20:42)
[2018-06-04 05:46] LABS: Hemoglobin 10.8 g/dL (12.0-16.0); Platelet Count 215 thou/uL (130-400)
[2018-06-04 06:01] LABS: ALT (SGPT) 13 U/L (8-55); AST (SGOT) 16 U/L (5-34); Albumin 3.2 g/dL (3.4-4.8); Alkaline Phosphatase 64 U/L (40-150); Anion Gap 14 mmol/L (10-20); BUN (Urea Nitrogen) 19 mg/dL (9.8-20.1); Bilirubin, Total 0.3 mg/dL (0.2-1.2); Calc. Creatinine Clearance 44 mL/min (70-130); Carbon Dioxide 24 mmol/L (23-31); Chloride 98 mmol/L (98-107); Estimated GFR-MDRD 60; Globulin 2.8 g/dL (2.4-3.5); Glucose 106 mg/dL (83-110); Potassium 4.2 mmol/L (3.5-5.1); Sodium 132 mmol/L (136-145)
[2018-06-04] MEDS: Bisoprolol Fumarate/HCTZ 10 mg/6.25 mg Tablet PO SCH ×2 (08:49→20:45)
[2018-06-04] MEDS: NIFEdipine XL 30 MG TAB PO SCH (08:49)
[2018-06-04] MEDS: Amiodarone 200 MG TAB PO SCH (08:49)
[2018-06-04] MEDS: Potassium Chloride 20 MEQ TAB PO SCH (08:50)
[2018-06-04] MEDS: Allopurinol 100 MG TAB PO SCH (08:50)
[2018-06-04] MEDS: Enoxaparin Sodium 40 MG/0.4 ML SYRINGE SC SCH (08:51)
[2018-06-04] MEDS: Gabapentin 300 MG CAP PO SCH (08:51)
[2018-06-04] MEDS: Multivitamin W/ Minerals 1 TAB PO SCH (08:51)
[2018-06-04] MEDS: HYDROcodone/Acetaminophen 10/325 mg Tablet PO PRN (11:22)
--- NOTE | 2018-06-04 17:35 | RAD ---
CHEST TWO VIEWS: 06/04/18 Comparison is made with the 05/11 study. The left central line has been removed in the interval. The he art size is unchanged and there are no congestive changes or pleural effusions. There is still some r ight perihilar prominence and prominence of markings around the hilum, though it is less than on the 05/11 study. It might be well to electively do a CT on this patient to clear the area completely. There are no new infiltrates and there are no effusions. IMPRESSION: Overall the appearance of the chest is improved since 05/11. I would still question if it might not be villalobos to get an elective CT to investigate the right hilar region. Code T POS: HOME
[2018-06-04] MEDS: HYDROcodone/Acetaminophen 5/325 mg Tablet PO PRN (20:42)
[2018-06-04] MEDS: Atorvastatin Calcium 40 MG TAB PO SCH (20:45)
[2018-06-05] MEDS: Bisoprolol Fumarate/HCTZ 10 mg/6.25 mg Tablet PO SCH ×2 (08:33→20:03)
[2018-06-05] MEDS: Potassium Chloride 20 MEQ TAB PO SCH (08:34)
[2018-06-05] MEDS: Allopurinol 100 MG TAB PO SCH (08:34)
[2018-06-05] MEDS: Multivitamin W/ Minerals 1 TAB PO SCH (08:35)
[2018-06-05] MEDS: Amiodarone 200 MG TAB PO SCH (08:35)
[2018-06-05] MEDS: NIFEdipine XL 30 MG TAB PO SCH (08:36)
[2018-06-05] MEDS: Enoxaparin Sodium 40 MG/0.4 ML SYRINGE SC SCH (08:40)
--- NOTE | 2018-06-05 14:01 | PRG ---
DATE OF SERVICE: 05/20/2018 PRIMARY CARE PHYSICIAN: Dr. Mina Clark. ATTENDING: Veronica Engle M.D. SUBJECTIVE: The patient has no major complaints except for some upset stomach, she refused physical therapy today. The patient is concerned about a nontender left thigh mass observed this week. She is complaining of difficulty with sleeping, not improved with Ambien 5 mg and some burning on both legs. We started Neurontin b.i.d. and Xanax 0.5 mg at bedtime along with her Ambien 10 mg at bedtime. OBJECTIVE: VITAL SIGNS: Blood pressure 117/53, temperature of 98.3, pulse of 69, respiratory rate of 16, O2 sat 95% at room air. GENERAL: The patient is alert, oriented, not in respiratory distress. HEENT: Normocephalic, atraumatic. Pupils equally reactive to light. NECK: Supple. Negative for lymphadenopathy. CHEST AND LUNGS: Symmetrical expansion. Clear to auscultation bilaterally. HEART: Regular rate and rhythm. Negative for murmur. ABDOMEN: Flat, soft, nontender, normoactive bowel sounds. EXTREMITIES: Right medial thigh has a wound VAC. Wound measurement length was 23.3, width of 31.2, depth of 1.5 cm with tunneling. Wound bed has red granulation with visible tendon. The left medial thigh wound has a wound VAC with a large amount of serosanguineous drainage. Wound measurements length of 13 cm, width of 43.5 cm, depth of 0.2 cm with no tunneling. Wound bed has red granulation. Left thigh mass has 3 cm palpable soft mass, non tender LABORATORY: Reviewed. ASSESSMENT: 1. Crushing injuries to chest and both lower extremities resulting to deep avulsion wounds to both lower extremities. 2. Infected traumatic wounds with positive growth of Stenotrophomonas maltophilia, bacillus and Enterococcus, resolved. 3. Postoperative ARDS. 4. Anemia secondary to blood loss. 5. Respiratory failure, resolved. 6. Congestive heart failure, systolic dysfunction, improved. 7. Rate controlled atrial fibrillation on Amiodarone. 8. Hypertension, stable. 9. Physical deconditioning secondary to #1. 10. Nausea, intermittent episodes. 11. Left thigh mass, possible hematoma versus lipoma. Will order ultrasound 12. The patient will continue with physical, occupational, and wound care. She has a followup appointment with Dr. Avalos. Plan is to do skin grafting. The patient will likely go home with home health with physical, occupational, and wound care. The patient has chosen [facility] for her when she goes home. KIMMIE
--- NOTE | 2018-06-05 15:17 | PRG ---
DATE OF SERVICE: 05/29/2018 PCP: Mina Clark M.D. ATTENDING: Veronica Engle M.D. SUBJECTIVE: Camelia is doing well. She went on 05/25, she is working well with physical [facility]. She walked 200 feet this morning without any assistive device. Her wounds are improving. She d enies any fever; however, she admitted to some nausea after visiting her friend from the patient's ro om. She has an appointment with Dr. Avalos on 06/01/2018. Her left leg ultrasound revealed a 1.8 cm c omplex mass without obvious internal blood flow. OBJECTIVE: VITAL SIGNS: Blood pressure of 123/57, temperature of 98, pulse of 72, respiratory rate of 18, 02 sa t 98% on room air. GENERAL: The patient is alert, oriented, not in respiratory distress. HEENT: Normocephalic, atraumatic. Pupils equally reactive to light. NECK: Supple. Negative for lymphadenopathy. CHEST AND LUNGS: Symmetrical expansion. Clear to auscultation bilaterally. HEART: Regular rate and rhythm. Negative for murmur. ABDOMEN: Flat, soft, nontender. Normoactive bowel sounds. EXTREMITIES: Right medial thigh has a wound VAC. Wound is measuring length of 17 cm, width of 11.1, depth of 0.1 with tunneling. Wound bed has red granulation with visible tendon. Left medial thigh has wound VAC with serosanguineous drainage. Wound measurement length of 9 cm, width of 3.1 cm, dept h 0 with no tunneling. Left medial thigh has a 3 cm, nontender, movable mass. LABORATORY DATA: Reviewed. ASSESSMENT AND PLAN: 1. Crushing injuries to chest and both lower extremities resulting to deep avulsion wounds to both l ower extremities, requiring wound VAC. 2. Infected traumatic wounds with positive growth of Stenotrophomonas maltophilia, Bacillus and Ente rococcus, resolved. 3. Postoperative acute respiratory distress syndrome. 4. Anemia secondary to blood loss. 5. Respiratory failure, resolved. 6. Congestive heart failure, systolic dysfunction, controlled. 7. Rate controlled atrial fibrillation. 8. Hypertension, stable. 9. Physical deconditioning secondary to number 1. 10. Nausea, intermittent episodes. 11. Left thigh mass. 12. The patient will continue with physical, occupational and wound care. She has a followup appoin tment with Dr. Avalos. Plan is to do skin grafting. The patient will go home with home health with ysical and occupational and wound care.
[2018-06-05 16:47] LABS: #Basophils 0.1 thou/uL (0.0-0.2); #Eosinphils 0.2 thou/uL (0.0-0.7); #Lymphocytes 0.9 thou/uL (1.20-3.40); #Monocytes 0.9 thou/uL (0.11-0.59); #Neutrophils 4.7 thou/uL (1.40-6.50); %Basophils 0.8 % (0.0-1.0); %Eosinophils 2.3 % (0.0-10.0); %Lymphocytes 13.3 % (21.0-51.0); %Monocytes 13.1 % (0.0-10.0); %Neutrophils 70.5 % (42.0-75.0); Hemoglobin 10.7 g/dL (12.0-16.0); Mean Corpuscular HGB CONC 33.8 g/dL (32.0-36.0); Mean Corpuscular Hemoglobin 31.4 pg (27.0-31.0); Mean Corpuscular Volume 92.9 fL (78.0-98.0); Mean Platelet Volume 7.8 fL (7.4-10.4); Platelet Count 275 thou/uL (130-400); RBC Distribution Width 13.3 % (11.5-14.5); White Blood Cell (WBC) Count 6.7 thou/uL (4.8-10.8)
[2018-06-05] MEDS: Acetaminophen 500 MG TAB PO PRN (18:26)
[2018-06-05] MEDS: Zolpidem Tartrate 5 MG TAB PO PRN (20:03)
[2018-06-05] MEDS: Atorvastatin Calcium 40 MG TAB PO SCH (20:03)
[2018-06-05] MEDS: HYDROcodone/Acetaminophen 5/325 mg Tablet PO PRN (20:04)
[2018-06-06 05:24] LABS: Hemoglobin 10.2 g/dL (12.0-16.0); Platelet Count 266 thou/uL (130-400)
[2018-06-06] MEDS ORDERED: Ibuprofen 200 MG TAB ONE (06:55)
[2018-06-06] MEDS: NIFEdipine XL 30 MG TAB PO SCH (08:21)
[2018-06-06] MEDS: Amiodarone 200 MG TAB PO SCH (08:21)
[2018-06-06] MEDS: Allopurinol 100 MG TAB PO SCH (08:21)
[2018-06-06] MEDS: Multivitamin W/ Minerals 1 TAB PO SCH (08:22)
[2018-06-06] MEDS: Potassium Chloride 20 MEQ TAB PO SCH (08:22)
[2018-06-06] MEDS: Bisoprolol Fumarate/HCTZ 10 mg/6.25 mg Tablet PO SCH ×2 (08:22→20:24)
[2018-06-06] MEDS: Enoxaparin Sodium 40 MG/0.4 ML SYRINGE SC SCH (08:23)
[2018-06-06] MEDS: Atorvastatin Calcium 40 MG TAB PO SCH (20:24)
[2018-06-06] MEDS: Zolpidem Tartrate 5 MG TAB PO PRN (20:24)
[2018-06-06] MEDS: HYDROcodone/Acetaminophen 5/325 mg Tablet PO PRN (20:24)
[2018-06-07] MEDS: traMADol HCl 50 MG TAB PO PRN ×2 (04:53→17:00)
[2018-06-07 05:10] VITALS: BMI 19.7
[2018-06-07 05:38] LABS: Anion Gap 13 mmol/L (10-20); BUN (Urea Nitrogen) 22 mg/dL (9.8-20.1); Calc. Creatinine Clearance 37 mL/min (70-130); Calcium 8.9 mg/dL (7.8-10.44); Carbon Dioxide 24 mmol/L (23-31); Chloride 101 mmol/L (98-107); Estimated GFR-MDRD 53; Glucose 109 mg/dL (83-110); Potassium 3.9 mmol/L (3.5-5.1); Sodium 134 mmol/L (136-145)
[2018-06-07] MEDS: Ondansetron ODT 4 MG TAB PO PRN (07:52)
[2018-06-07] MEDS: Amiodarone 200 MG TAB PO SCH (08:50)
[2018-06-07] MEDS: Bisoprolol Fumarate/HCTZ 10 mg/6.25 mg Tablet PO SCH ×2 (08:51→20:34)
[2018-06-07] MEDS: Enoxaparin Sodium 40 MG/0.4 ML SYRINGE SC SCH (08:51)
[2018-06-07] MEDS: Multivitamin W/ Minerals 1 TAB PO SCH (08:52)
[2018-06-07] MEDS: Allopurinol 100 MG TAB PO SCH (08:52)
[2018-06-07] MEDS: NIFEdipine XL 30 MG TAB PO SCH (08:53)
[2018-06-07] MEDS: Potassium Chloride 20 MEQ TAB PO SCH (08:53)
[2018-06-07] MEDS: HYDROcodone/Acetaminophen 5/325 mg Tablet PO PRN ×2 (10:08→20:35)
[2018-06-07] MEDS: Zolpidem Tartrate 5 MG TAB PO PRN (20:35)
[2018-06-07] MEDS: Atorvastatin Calcium 40 MG TAB PO SCH (20:35)
[2018-06-08 05:22] LABS: Hemoglobin 11.1 g/dL (12.0-16.0); Platelet Count 379 thou/uL (130-400)
[2018-06-08] MEDS: Alendronate Sodium 70 mg Tablet PO SCH (05:57)
[2018-06-08] MEDS ORDERED: Fluorescein Opthalmic Strip ONE (06:28)
[2018-06-08] MEDS: Potassium Chloride 20 MEQ TAB PO SCH (08:22)
[2018-06-08] MEDS: NIFEdipine XL 30 MG TAB PO SCH (08:22)
[2018-06-08] MEDS: Amiodarone 200 MG TAB PO SCH (08:22)
[2018-06-08] MEDS: Allopurinol 100 MG TAB PO SCH (08:22)
[2018-06-08] MEDS: Bisoprolol Fumarate/HCTZ 10 mg/6.25 mg Tablet PO SCH ×2 (08:23→20:03)
[2018-06-08] MEDS: Multivitamin W/ Minerals 1 TAB PO SCH (08:23)
[2018-06-08] MEDS: Enoxaparin Sodium 40 MG/0.4 ML SYRINGE SC SCH (08:24)
[2018-06-08] MEDS: HYDROcodone/Acetaminophen 5/325 mg Tablet PO PRN ×2 (08:26→20:04)
[2018-06-08] MEDS: Ondansetron ODT 4 MG TAB PO PRN (14:57)
[2018-06-08] MEDS: Atorvastatin Calcium 40 MG TAB PO SCH (20:03)
[2018-06-08] MEDS: Zolpidem Tartrate 5 MG TAB PO PRN (20:05)
[2018-06-09] MEDS: Acetaminophen 500 MG TAB PO PRN (01:36)
[2018-06-09] MEDS: HYDROcodone/Acetaminophen 5/325 mg Tablet PO PRN ×2 (03:07→20:32)
[2018-06-09] MEDS: Ondansetron ODT 4 MG TAB PO PRN (06:38)
[2018-06-09] MEDS ORDERED: Promethazine 25 MG TAB PO PRN (08:02)
[2018-06-09] MEDS ORDERED: ALPRAZolam 0.5 MG TAB PO PRN (08:03)
[2018-06-09] MEDS: NIFEdipine XL 30 MG TAB PO SCH (08:29)
[2018-06-09] MEDS: Amiodarone 200 MG TAB PO SCH (08:29)
[2018-06-09] MEDS: Allopurinol 100 MG TAB PO SCH (08:29)
[2018-06-09] MEDS: Potassium Chloride 20 MEQ TAB PO SCH (08:29)
[2018-06-09] MEDS: Enoxaparin Sodium 30 MG/0.3 ML SYRINGE SC SCH (08:30)
[2018-06-09] MEDS: Bisoprolol Fumarate/HCTZ 10 mg/6.25 mg Tablet PO SCH ×2 (08:30→20:28)
[2018-06-09] MEDS: Multivitamin W/ Minerals 1 TAB PO SCH (08:30)
[2018-06-09] MEDS: Atorvastatin Calcium 40 MG TAB PO SCH (20:28)
[2018-06-09] MEDS: Zolpidem Tartrate 5 MG TAB PO PRN (20:32)
[2018-06-10 04:53] LABS: Hemoglobin 10.7 g/dL (12.0-16.0); Platelet Count 431 thou/uL (130-400)
[2018-06-10] MEDS: Bisoprolol Fumarate/HCTZ 10 mg/6.25 mg Tablet PO SCH ×2 (08:16→20:56)
[2018-06-10] MEDS: Allopurinol 100 MG TAB PO SCH (08:17)
[2018-06-10] MEDS: Potassium Chloride 20 MEQ TAB PO SCH (08:17)
[2018-06-10] MEDS: NIFEdipine XL 30 MG TAB PO SCH (08:17)
[2018-06-10] MEDS: Multivitamin W/ Minerals 1 TAB PO SCH (08:17)
[2018-06-10] MEDS: Amiodarone 200 MG TAB PO SCH (08:18)
[2018-06-10] MEDS: Enoxaparin Sodium 30 MG/0.3 ML SYRINGE SC SCH (08:30)
[2018-06-10] MEDS: HYDROcodone/Acetaminophen 5/325 mg Tablet PO PRN ×2 (10:05→20:56)
[2018-06-10] MEDS: traMADol HCl 50 MG TAB PO PRN (16:12)
[2018-06-10] MEDS: Zolpidem Tartrate 5 MG TAB PO PRN (20:56)
[2018-06-10] MEDS: Atorvastatin Calcium 40 MG TAB PO SCH (20:56)
[2018-06-11 05:41] VITALS: BP 134/62; TEMP 97.4
[2018-06-11] MEDS: HYDROcodone/Acetaminophen 5/325 mg Tablet PO PRN (08:28)
[2018-06-11] MEDS: Bisoprolol Fumarate/HCTZ 10 mg/6.25 mg Tablet PO SCH (08:29)
[2018-06-11] MEDS: NIFEdipine XL 30 MG TAB PO SCH (08:29)
[2018-06-11] MEDS: Amiodarone 200 MG TAB PO SCH (08:30)
== END 2018-06-11 09:00 | disposition short-term general hospital (02) | DRG 949 ==
LOC: BURMED 17:00
PROVIDERS: ADMIT Family Medicine; ATTEND Family Medicine
DX: S00-T88 Injury, poisoning and certain other consequences of external causes (principal); J80 Acute respiratory distress syndrome; D62 Acute posthemorrhagic anemia; I50.20 Unspecified systolic (congestive) heart failure; Z85.3 Personal history of malignant neoplasm of breast; E78.5 Hyperlipidemia, unspecified; Z90.710 Acquired absence of both cervix and uterus; K59.00 Constipation, unspecified; S87.82XD Crushing injury of left lower leg, subsequent encounter; S87.81XD Crushing injury of right lower leg, subsequent encounter; S81.802D Unspecified open wound, left lower leg, subsequent encounter; S81.801D Unspecified open wound, right lower leg, subsequent encounter; I48.91 Unspecified atrial fibrillation; Z85.828 Personal history of other malignant neoplasm of skin; B95.2 Enterococcus as the cause of diseases classified elsewhere; B96.89 Other specified bacterial agents as the cause of diseases classified elsewhere; R22.2 Localized swelling, mass and lump, trunk; R11.2 Nausea with vomiting, unspecified; T45.4X5A Adverse effect of iron and its compounds, initial encounter; Z87.01 Personal history of pneumonia (recurrent); D72.829 Elevated white blood cell count, unspecified; S22.49XD Multiple fractures of ribs, unspecified side, subsequent encounter for fracture with routine healing; S27.329D Contusion of lung, unspecified, subsequent encounter; S81.012D Laceration without foreign body, left knee, subsequent encounter; S81.011D Laceration without foreign body, right knee, subsequent encounter; S71.111D Laceration without foreign body, right thigh, subsequent encounter; I11.0 Hypertensive heart disease with heart failure
CPT/HCPCS: 36415; 71046; 76999; 80048; 80053; 81001; 82565; 84134; 85014; 85018; 85025; 85049; 87070; 87077; 87086; 87186; 87205; 97602; A4216; G8978-GP-CJ; G8979-GP-CH; G8987-GO-CK; G8988-GO-CI; G8990-GP-CH; G8991-GP-CH; J0295; J1642; J1650; J7050; J7620; Q0162

== ENCOUNTER 2020-03-03 20:46 | Emergency (ER) | payer MEDICARE, BC | END 2020-03-03 22:40 | disposition home or self-care (01) | LOC: BURERS 20:46 | DX: M54.5 Low back pain (principal); G89.29 Other chronic pain; K21.9 Gastro-esophageal reflux disease without esophagitis; E78.2 Mixed hyperlipidemia; I10 Essential (primary) hypertension; M19.90 Unspecified osteoarthritis, unspecified site; Z87.891 Personal history of nicotine dependence; Z79.899 Other long term (current) drug therapy | CPT/HCPCS: 99283 ==

== ENCOUNTER 2020-04-04 21:41 | Emergency (ER) | payer MEDICARE, BC ==
[2020-04-04] MEDS ORDERED: Hydrochlorothiazide 25 MG TAB ONE (22:27)
== END 2020-04-04 22:33 | disposition home or self-care (01) ==
LOC: BURERS 21:41
DX: I10 Essential (primary) hypertension (principal); K21.9 Gastro-esophageal reflux disease without esophagitis; E78.2 Mixed hyperlipidemia; M19.90 Unspecified osteoarthritis, unspecified site; Z87.891 Personal history of nicotine dependence; Z79.899 Other long term (current) drug therapy
CPT/HCPCS: 93005

== ENCOUNTER 2020-11-17 14:40 | Emergency (ER) | payer MEDICARE, BC ==
[2020-11-17 16:02] LABS: #Lymphocytes 0.9 thou/uL (1.20-3.40); #Monocytes 0.6 thou/uL (0.11-0.59); #Neutrophils 4.4 thou/uL (1.40-6.50); %Basophils 0.4 % (0.0-1.0); %Eosinophils 0.5 % (0.0-10.0); %Lymphocytes 15.4 % (21.0-51.0); %Monocytes 9.6 % (0.0-10.0); %Neutrophils 74.1 % (42.0-75.0); Hemoglobin 12.7 g/dL (12.0-16.0); Mean Corpuscular HGB CONC 33.3 g/dL (32.0-36.0); Mean Corpuscular Hemoglobin 31.3 pg (27.0-31.0); Platelet Count 264 thou/uL (130-400); Red Blood Cell (RBC) Count 4.06 mill/uL (4.20-5.40); White Blood Cell (WBC) Count 5.9 thou/uL (4.8-10.8)
[2020-11-17 16:24] LABS: Bilirubin Negative (Negative); Blood, Urine Negative (Negative); Clarity Clear (Clear); Glucose, Urine (Dipstick) Negative (Negative); Ketone, Urine Negative (Negative); Leukocyte Trace (Negative); Nitrite Negative (Negative); Protein, Urine (Dipstick) 100 mg/dL (Neg-Trace); Urobilinogen 0.2 mg/dL (Less than 2); pH, Urine 6.5 (5.0-9.0)
[2020-11-17 16:29] LABS: Bacteria/HPF Rare-Few HPF (None Seen); RBC/HPF None Seen HPF (0-3); Renal Epithelial 0-3 HPF (None Seen); Squamous Epithelial 0-3 HPF (0-3); WBC/HPF 0-3 HPF (0-3)
[2020-11-17 16:53] LABS: ALT (SGPT) 21 U/L (8-55); AST (SGOT) 37 U/L (5-34); Albumin 3.4 g/dL (3.4-4.8); Alkaline Phosphatase 46 U/L (40-110); Anion Gap 17 mmol/L (10-20); BUN (Urea Nitrogen) 16 mg/dL (9.8-20.1); Bilirubin, Total 0.3 mg/dL (0.2-1.2); CK (CPK) 114 U/L (29-168); Calc. Creatinine Clearance 0 mL/min (70-130); Carbon Dioxide 17 mmol/L (23-31); Chloride 100 mmol/L (98-107); Globulin 3.2 g/dL (2.4-3.5); Glucose 121 mg/dL (83-110); Lipase 111 U/L (8-78); Potassium 4.4 mmol/L (3.5-5.1); Protein, Total 6.6 g/dL (5.8-8.1); Sodium 130 mmol/L (136-145); Uric Acid 5.6 mg/dL (2.6-6.0)
[2020-11-17] MEDS ORDERED: Ondansetron ODT 4 MG TAB ONE (17:22)
== END 2020-11-17 18:05 | disposition home or self-care (01) ==
LOC: BURERS 14:40
DX: R74.8 Abnormal levels of other serum enzymes (principal); K21.9 Gastro-esophageal reflux disease without esophagitis; E78.2 Mixed hyperlipidemia; I10 Essential (primary) hypertension; E11.9 Type 2 diabetes mellitus without complications; Z87.891 Personal history of nicotine dependence; Z79.899 Other long term (current) drug therapy
CPT/HCPCS: 80053; 81003; 81015; 82550; 83605; 83690; 83735; 84484; 84550; 85025; 93005; Q0162

== ENCOUNTER 2020-11-22 08:30 | Inpatient (IN) | payer MEDICARE, BC ==
[2020-11-22 09:59] LABS: Band 2 % (5-11); Eosinophils 3 % (0-10); Hemoglobin 12.2 g/dL (12.0-16.0); Lymphocytes 12 % (21-51); MDiff Complete? YES; Mean Corpuscular HGB CONC 32.1 g/dL (32.0-36.0); Mean Corpuscular Hemoglobin 30.6 pg (27.0-31.0); Mean Corpuscular Volume 95.1 fL (78.0-98.0); Mean Platelet Volume 7.2 fL (7.4-10.4); Monocytes 3 % (0-10); Neutrophil 80 % (42-75); Platelet Count 367 thou/uL (130-400); RBC Distribution Width 11.5 % (11.5-14.5); Red Blood Cell (RBC) Count 3.99 mill/uL (4.20-5.40); White Blood Cell (WBC) Count 10.5 thou/uL (4.8-10.8)
[2020-11-22 10:02] LABS: ALT (SGPT) 20 U/L (8-55); AST (SGOT) 26 U/L (5-34); Albumin 3.9 g/dL (3.4-4.8); Alkaline Phosphatase 44 U/L (40-110); Anion Gap 17 mmol/L (10-20); BUN (Urea Nitrogen) 14 mg/dL (9.8-20.1); Bilirubin, Total 0.4 mg/dL (0.2-1.2); Calc. Creatinine Clearance 0 mL/min (70-130); Calcium 10.5 mg/dL (7.8-10.44); Carbon Dioxide 27 mmol/L (23-31); Chloride 97 mmol/L (98-107); Globulin 3.1 g/dL (2.4-3.5); Glucose 123 mg/dL (83-110); Lipase 40 U/L (8-78); Potassium 3.8 mmol/L (3.5-5.1); Sodium 137 mmol/L (136-145)
[2020-11-22 10:21] LABS: Bilirubin Negative (Negative); Blood, Urine Trace (Negative); Clarity Clear (Clear); Glucose, Urine (Dipstick) Negative (Negative); Ketone, Urine Negative (Negative); Leukocyte Negative (Negative); Nitrite Negative (Negative); Protein, Urine (Dipstick) > or equal to 300 mg/dL (Neg-Trace); Specific Gravity, Urine 1.025 (1.005-1.030); Urobilinogen 0.2 mg/dL (Less than 2)
[2020-11-22 10:28] LABS: Bacteria/HPF None Seen HPF (None Seen); RBC/HPF 0-3 HPF (0-3); Squamous Epithelial 0-3 HPF (0-3); WBC/HPF None Seen HPF (0-3)
--- NOTE | 2020-11-22 11:14 | RAD ---
PORTABLE CHEST: Date: 11/22/2020 An AP portable film at 0945 hours is compared with an 05/11/2018 study. The heart remains normal in size. There is no vascular congestion or edema. No pleural effusions are present. An azygos lobe is noted in the right upper chest, a common variant. The right lung is clear. There is a minimal amount of haziness in the left lung base. I cannot tell if there is an early infiltrate fo rming here or not. This area may require future imaging if she is not improving. Otherwise, there wer e no acute findings. Concern was indicated on a prior film regarding the right hilum. Today, it does not appear abnormal. IMPRESSION: Equivocal left basilar haziness. Consider follow-up chest x-ray if her overall condition is not impro ving. POS: HOME
--- NOTE | 2020-11-22 11:43 | CT ---
CT ABDOMEN AND PELVIS WITHOUT CONTRAST: DATE: 11/22/2020. FINDINGS: A noncontrast study was performed. IV access could not easily be obtained. Comparison is made with a CT of the abdomen dated 03/11/2019. Infiltrates are seen forming in the left lower lobe. The right lung is clear. The liver and spleen showed no acute findings. No dilated intrahepatic ducts were seen. The gallbladder is not dilated t christina either. The pancreas is thin. There is a questionable subcentimeter lucency in the tail which a prior MRI has shown to be a small cystic lesion. It is not much different in size over time. The common bile duct is visualized and is actually smaller than on prior studies. An exophytic cyst is s een in the right kidney, as before. Today it is 1.6 cm wide and contains CT numbers less than 10. T here is no sign of renal obstruction or calculi. The aorta shows some calcification, but no aneurysm . The aorta shows some calcification, but no aneurysm. The bowel shows no distention or wall thickening to suggest acute inflammatory change. There is gregoria re sigmoid diverticulosis, but no findings of diverticulitis. No free air or free fluid was seen. CT of the pelvis shows no pelvic masses, fluid collections, or inflammatory changes. Degenerative ch anges are noted in the spine which also is scoliotic. IMPRESSION: 1. Left lower lobe infiltrate, presumably a developing pneumonia. 2. Previously distended gallbladder and common bile duct have resolved. 3. Sigmoid diverticulosis without findings of diverticulitis. Preliminary report called to Dr. Leong at 1122 on 11/22/2020. CODE CR POS: HOME
[2020-11-22] MEDS ORDERED: Azithromycin 500 MG VIAL ONE (12:19)
[2020-11-22] MEDS ORDERED: cefTRIAXone\\ROCEPHIN 1 GM VIAL ONE (12:19)
[2020-11-22 13:36] LABS: SARS-CoV-2 NAA Rapid Test DETECTED (NotDetected)
[2020-11-22 16:30] VITALS: BMI 19.5
[2020-11-22] MEDS: Cyclobenzaprine 10 MG TAB PO SCH (20:42)
[2020-11-22] MEDS: Atenolol 50 MG TAB PO SCH (20:43)
[2020-11-22] MEDS: Atorvastatin Calcium 40 MG TAB PO SCH (20:43)
[2020-11-22] MEDS: Ondansetron ODT 4 MG TAB PO SCH (20:43)
[2020-11-22] MEDS: Enoxaparin Sodium 30 MG/0.3 ML SYRINGE SC SCH (20:44)
[2020-11-22] MEDS: Chlorthalidone 25 MG TAB PO SCH (20:45)
[2020-11-22] MEDS: Zolpidem Tartrate 5 MG TAB PO PRN (20:59)
[2020-11-22] MEDS ORDERED: Non-Formulary Item 1 EACH (Atenolol/Chlorthalidone [Atenolol-Chlorthalidone 50-25] 1 EACH PO SCH (21:00)
[2020-11-22] MEDS ORDERED: HYDROcodone/Acetaminophen 5/325 mg Tablet PO PRN (21:15)
[2020-11-22] MEDS ORDERED: Ondansetron PF 4 MG/2 ML Vial IVP PRN (21:15)
[2020-11-23] MEDS: Ondansetron ODT 4 MG TAB PO SCH ×7 (00:58→23:59)
[2020-11-23 06:01] LABS: BUN (Urea Nitrogen) 12 mg/dL (9.8-20.1); Glucose 88 mg/dL (83-110)
[2020-11-23 06:02] LABS: Calc. Creatinine Clearance 36 mL/min (70-130); Calcium 9.6 mg/dL (7.8-10.44); Carbon Dioxide 28 mmol/L (23-31)
[2020-11-23 06:14] LABS: #Basophils 0.1 thou/uL (0.0-0.2); #Eosinphils 0.1 thou/uL (0.0-0.7); #Lymphocytes 1.6 thou/uL (1.20-3.40); #Monocytes 0.7 thou/uL (0.11-0.59); %Basophils 1.8 % (0.0-1.0); %Eosinophils 1.6 % (0.0-10.0); %Lymphocytes 28.6 % (21.0-51.0); %Monocytes 13.4 % (0.0-10.0); %Neutrophils 54.7 % (42.0-75.0); Hemoglobin 11.4 g/dL (12.0-16.0); Mean Corpuscular HGB CONC 33.9 g/dL (32.0-36.0); Mean Corpuscular Hemoglobin 31.5 pg (27.0-31.0); Mean Platelet Volume 7.1 fL (7.4-10.4); Platelet Count 320 thou/uL (130-400); RBC Distribution Width 11.4 % (11.5-14.5); Red Blood Cell (RBC) Count 3.62 mill/uL (4.20-5.40); White Blood Cell (WBC) Count 5.5 thou/uL (4.8-10.8)
[2020-11-23 06:27] LABS: Sodium 141 mmol/L (136-145)
[2020-11-23 06:28] LABS: Anion Gap 17 mmol/L (10-20); Chloride 100 mmol/L (98-107); Potassium 3.5 mmol/L (3.5-5.1)
[2020-11-23] MEDS ORDERED: Sodium Chloride 0.9% 1,000 ML IV SCH (08:15)
[2020-11-23] MEDS: Acetaminophen ER (8hr) 650 MG TAB PO PRN ×2 (09:10→14:58)
[2020-11-23] MEDS: Cyclobenzaprine 10 MG TAB PO SCH ×2 (09:11→19:50)
[2020-11-23] MEDS: Atenolol 50 MG TAB PO SCH ×2 (09:12→19:49)
[2020-11-23] MEDS: Pioglitazone HCl 15 MG TAB PO SCH (09:13)
[2020-11-23] MEDS: Chlorthalidone 25 MG TAB PO SCH ×2 (09:13→19:51)
--- NOTE | 2020-11-23 10:54 | HP ---
CHIEF COMPLAINT: Abdominal pain. HISTORY OF PRESENT ILLNESS: The patient is an 80-year-old female who presented with 1 week of abdominal pain and nausea. She had been to her primary care physician, had some blood work ordered, and was treated with Zofran. She did originally present to the emergency room a couple of days prior with similar complaints; however, was released. She reported back to the emergency room when her nausea and abdominal pain were simply worsening. On arrival in the emergency room, she had a chest x-ray and abdominal CT, both showing pneumonia left sided. She was given IV Rocephin and Zithromax via the peripheral in her foot. Apparently very difficult to obtain regular IV access in the antecubital. Since yesterday, she is feeling really about the same. She states she feels dry. The abdominal pain is perhaps a little bit better as is the nausea. She did according to nursing report refuse the Zofran at least once. Had a bowel movement this morning, she describes as formed mahendra, but no diarrhea. REVIEW OF SYSTEMS: She has no fever. No chills. No vomiting or diarrhea. No chest pain or shortness of breath. No sputum or hemoptysis. She does get some easy bruising, but this is not new. There has been no rash. No headache or visual changes. Other is reviewed and negative except as above. PAST MEDICAL HISTORY: 1. Hypertension. 2. Diabetes. 3. Some report of elevated BUN and creatinine. 4. GERD. 5. Chronic back pain and/or spasm/stiffness. PAST SURGICAL HISTORY: 1. Appendectomy. 2. Lumpectomy of the breast. SOCIAL HISTORY: Lives at home with her . Does consume alcohol fairly frequently, around 2 beers a day. Not a current smoker. MEDICATIONS: 1. Alendronate. 2. Atorvastatin. 3. Pantoprazole. 4. Pioglitazone. 5. Chlorzoxazone. 6. Amlodipine. 7. Atenolol. 8. Nifedipine. 9. Uloric. 10. Zolpidem. 11. Zofran. 12. Colchicine, recently. 13. Multivitamins with folic acid. 14. Fish oil. 15. CoQ10. ALLERGIES: THE PATIENT LISTS ALLERGIES TO ASPIRIN, CIPROFLOXACIN, NITROFURANTOIN, PENICILLIN, SULFA, AND ALSO THE PNEUMOCOCCAL VACCINE. PHYSICAL EXAMINATION: VITAL SIGNS: Temperature 98.1, pulse 77, respiratory rate 18, O2 saturation 93% to 95% on room air, and current blood pressure 135/68. GENERAL: No distress. Alert and oriented. Lying in bed relatively comfortably. Conversant. Appropriate response. HEENT: Mucous membranes pink and slightly dry. There is no scleral icterus or conjunctival pallor. Pupils are equal, round, and reactive. HEART: Regular, not ectopy or appreciable murmur, though exam somewhat limited by disposable stethoscope. LUNGS: Relatively clear to auscultation bilaterally with some suggestion of faint rales at the very base of left lower lung field, but there is otherwise no rhonchi. ABDOMEN: Soft and nondistended. Normoactive bowel sounds. Minimal vague diffuse tenderness without focal tenderness and no mass appreciated. EXTREMITIES: Warm without clubbing or cyanosis. Normal peripheral pulses bilaterally in the upper and lower extremities. REVIEW OF DATA: The chest x-ray from 11/22, result is equivocal left basilar haziness. The CT scan of the abdomen and pelvis from 11/22, confirms a left lower lobe infiltrate, significant amount of diverticulosis without any findings suggestive of diverticulitis, and no other suggestion of acute inflammatory change was found in the abdomen on CT. Current CBC shows a slight anemia with a hemoglobin of 11.4, which is down from 12.2 from previous day. The chemistry shows normal electrolytes with creatinine level of 0.98. IMPRESSION: 1. COVID pneumonia. 2. Hypertension. 3. Nausea. 4. Abdominal pain. 5. Mild anemia. 6. Diabetes mellitus, type 2. PLAN: She is admitted for acute stay. Follow blood cultures. Continue IV Rocephin and Zithromax. Monitor blood pressure, which is currently well controlled. I am going to give her a 1 L normal saline bolus over 12 hours and I advised her to push fluids as well. Due to slight anemia that was not seen yesterday, we will guaiac the stools to ensure that there is no occult bleeding. Follow her CBC and BMP daily. Lovenox for DVT prophylaxis. Ambulation is going to be somewhat difficult/limited due to IV being in the foot due to hard stick. She was previously ordered Vicodin for pain, which will be discontinued. We will give her Tylenol for pain. Further recommendations pending clinical course. She will be transferred to the negative pressure room once available. Job ID: [id number]
[2020-11-23] MEDS ORDERED: Azithromycin 500 MG in Sodium Chloride 0.9% 250 ML 250 ML IVPB SCH ×2 (12:00→14:00)
[2020-11-23] MEDS: cefTRIAXone\\ROCEPHIN 1 GM in Sodium Chloride 0.9% 100 ML IVPB SCH (12:14)
[2020-11-23] MEDS ORDERED: FLU VACC QS2020-21(65YR UP)/PF 240 MCG/0.7 ML SYRINGE IM ONE (16:45)
[2020-11-23] MEDS: Zolpidem Tartrate 5 MG TAB PO PRN (19:49)
[2020-11-23] MEDS: Atorvastatin Calcium 40 MG TAB PO SCH (19:51)
[2020-11-23] MEDS: Enoxaparin Sodium 30 MG/0.3 ML SYRINGE SC SCH (19:51)
[2020-11-24] MEDS: Ondansetron ODT 4 MG TAB PO SCH ×5 (05:29→20:32)
[2020-11-24] MEDS: Acetaminophen ER (8hr) 650 MG TAB PO PRN ×2 (05:29→14:55)
[2020-11-24 05:34] LABS: Anion Gap 15 mmol/L (10-20); BUN (Urea Nitrogen) 14 mg/dL (9.8-20.1); Calc. Creatinine Clearance 29 mL/min (70-130); Calcium 8.8 mg/dL (7.8-10.44); Carbon Dioxide 27 mmol/L (23-31); Chloride 101 mmol/L (98-107); Glucose 100 mg/dL (83-110); Potassium 3.5 mmol/L (3.5-5.1); Sodium 139 mmol/L (136-145)
[2020-11-24 05:56] LABS: Anisocytosis SLIGHT = 6-15 cells (100X) (0-5/hpf); Band 6 % (5-11); Hemoglobin 11.3 g/dL (12.0-16.0); Lymphocytes 15 % (21-51); MDiff Complete? YES; Mean Corpuscular HGB CONC 32.4 g/dL (32.0-36.0); Mean Corpuscular Hemoglobin 30.6 pg (27.0-31.0); Mean Corpuscular Volume 94.3 fL (78.0-98.0); Monocytes 7 % (0-10); Neutrophil 72 % (42-75); Ovalocytes SLIGHT = 2-5 cells (100X) (0-1/hpf); Platelet Count 317 thou/uL (130-400); Platelet Morphology Comment Appears Adequate; RBC Distribution Width 11.7 % (11.5-14.5); Red Blood Cell (RBC) Count 3.69 mill/uL (4.20-5.40); Vacuoles SLIGHT; White Blood Cell (WBC) Count 7.8 thou/uL (4.8-10.8)
[2020-11-24] MEDS: Pioglitazone HCl 15 MG TAB PO SCH (07:55)
[2020-11-24] MEDS: Cyclobenzaprine 10 MG TAB PO SCH ×2 (07:56→20:32)
[2020-11-24] MEDS: Chlorthalidone 25 MG TAB PO SCH ×2 (07:57→20:34)
[2020-11-24] MEDS: Azithromycin 250 MG TAB PO SCH (07:58)
[2020-11-24] MEDS: Atenolol 50 MG TAB PO SCH ×2 (07:58→20:34)
[2020-11-24] MEDS: cefTRIAXone\\ROCEPHIN 1 GM in Sodium Chloride 0.9% 100 ML IVPB SCH (11:42)
[2020-11-24] MEDS: NIFEdipine XL 30 MG TAB PO SCH (12:44)
[2020-11-24] MEDS: Zolpidem Tartrate 5 MG TAB PO PRN (20:33)
[2020-11-24] MEDS: Atorvastatin Calcium 40 MG TAB PO SCH (20:34)
[2020-11-24] MEDS: Enoxaparin Sodium 30 MG/0.3 ML SYRINGE SC SCH (20:35)
[2020-11-25] MEDS: Ondansetron ODT 4 MG TAB PO SCH ×6 (01:17→21:55)
[2020-11-25 05:13] LABS: Anion Gap 12 mmol/L (10-20); BUN (Urea Nitrogen) 12 mg/dL (9.8-20.1); Calc. Creatinine Clearance 30 mL/min (70-130); Carbon Dioxide 28 mmol/L (23-31); Chloride 103 mmol/L (98-107); Glucose 93 mg/dL (83-110); Potassium 3.3 mmol/L (3.5-5.1); Sodium 140 mmol/L (136-145)
[2020-11-25] MEDS: Cefuroxime 500 MG TAB PO SCH ×2 (05:24→18:36)
[2020-11-25 07:50] LABS: #Eosinphils 0.1 thou/uL (0.0-0.7); #Lymphocytes 1.3 thou/uL (1.20-3.40); #Neutrophils 6.1 thou/uL (1.40-6.50); %Basophils 0.5 % (0.0-1.0); %Eosinophils 1.3 % (0.0-10.0); %Lymphocytes 15.5 % (21.0-51.0); %Monocytes 11.6 % (0.0-10.0); %Neutrophils 71.1 % (42.0-75.0); Mean Corpuscular HGB CONC 32.9 g/dL (32.0-36.0); Mean Corpuscular Hemoglobin 31.2 pg (27.0-31.0); Mean Corpuscular Volume 94.8 fL (78.0-98.0); Mean Platelet Volume 7.1 fL (7.4-10.4); Platelet Count 288 thou/uL (130-400); RBC Distribution Width 11.6 % (11.5-14.5); Red Blood Cell (RBC) Count 3.54 mill/uL (4.20-5.40); White Blood Cell (WBC) Count 8.6 thou/uL (4.8-10.8)
[2020-11-25] MEDS: Pioglitazone HCl 15 MG TAB PO SCH (08:52)
[2020-11-25] MEDS: Cyclobenzaprine 10 MG TAB PO SCH ×2 (08:53→21:53)
[2020-11-25] MEDS: Atenolol 50 MG TAB PO SCH ×2 (08:54→21:53)
[2020-11-25] MEDS: Azithromycin 250 MG TAB PO SCH (08:54)
[2020-11-25] MEDS: Chlorthalidone 25 MG TAB PO SCH ×2 (08:55→21:54)
[2020-11-25] MEDS: NIFEdipine XL 30 MG TAB PO SCH (13:11)
[2020-11-25] MEDS: Potassium Chloride 20 MEQ TAB PO SCH (18:36)
[2020-11-25] MEDS: Atorvastatin Calcium 40 MG TAB PO SCH (21:54)
[2020-11-25] MEDS: Acetaminophen ER (8hr) 650 MG TAB PO PRN (21:55)
[2020-11-25] MEDS: Pantoprazole 40 MG VIAL IVP SCH (21:56)
[2020-11-25] MEDS: Zolpidem Tartrate 5 MG TAB PO PRN (22:28)
[2020-11-26] MEDS: Cefuroxime 500 MG TAB PO SCH (05:43)
[2020-11-26] MEDS: Ondansetron ODT 4 MG TAB PO SCH ×4 (05:44→13:05)
[2020-11-26 06:07] VITALS: BP 154/74
[2020-11-26 08:05] LABS: Anion Gap 14 mmol/L (10-20); BUN (Urea Nitrogen) 16 mg/dL (9.8-20.1); Calc. Creatinine Clearance 24 mL/min (70-130); Calcium 9.5 mg/dL (7.8-10.44); Carbon Dioxide 28 mmol/L (23-31); Chloride 101 mmol/L (98-107); Glucose 94 mg/dL (83-110); Potassium 3.8 mmol/L (3.5-5.1); Sodium 139 mmol/L (136-145)
[2020-11-26 08:23] LABS: Anisocytosis SLIGHT = 6-15 cells (100X) (0-5/hpf); Band 5 % (5-11); Hemoglobin 11.8 g/dL (12.0-16.0); Lymphocytes 14 % (21-51); MDiff Complete? YES; Mean Corpuscular HGB CONC 31.8 g/dL (32.0-36.0); Mean Corpuscular Hemoglobin 30.7 pg (27.0-31.0); Mean Corpuscular Volume 96.4 fL (78.0-98.0); Mean Platelet Volume 8.4 fL (7.4-10.4); Monocytes 9 % (0-10); Neutrophil 72 % (42-75); Ovalocytes SLIGHT = 2-5 cells (100X) (0-1/hpf); Platelet Count 283 thou/uL (130-400); RBC Distribution Width 12.3 % (11.5-14.5); Red Blood Cell (RBC) Count 3.85 mill/uL (4.20-5.40); Vacuoles MODERATE
[2020-11-26] MEDS: Potassium Chloride 20 MEQ TAB PO SCH (09:03)
[2020-11-26] MEDS: Cyclobenzaprine 10 MG TAB PO SCH (09:04)
[2020-11-26] MEDS: Chlorthalidone 25 MG TAB PO SCH (09:04)
[2020-11-26] MEDS: Atenolol 50 MG TAB PO SCH (09:05)
[2020-11-26] MEDS: Pioglitazone HCl 15 MG TAB PO SCH (09:05)
[2020-11-26] MEDS: Pantoprazole 40 MG VIAL IVP SCH (09:05)
[2020-11-26] MEDS: Azithromycin 250 MG TAB PO SCH (09:05)
[2020-11-26] MEDS: NIFEdipine XL 30 MG TAB PO SCH (13:05)
[2020-11-26 16:54] VITALS: TEMP 98.2
[2020-11-29] MEDS ORDERED: Alendronate Sodium 70 mg Tablet PO SCH (09:00)
== END 2020-11-26 17:17 | disposition home or self-care (01) | DRG 177 ==
LOC: BURERS 08:30 → BURMED 14:39
PROVIDERS: ADMIT Family Medicine; ATTEND Family Medicine
DX: U07.1 COVID-19 (principal); J12.82 Pneumonia due to coronavirus disease 2019; I10 Essential (primary) hypertension; K21.9 Gastro-esophageal reflux disease without esophagitis; E78.5 Hyperlipidemia, unspecified; E78.00 Pure hypercholesterolemia, unspecified; E11.9 Type 2 diabetes mellitus without complications; G89.29 Other chronic pain; M54.9 Dorsalgia, unspecified; D64.9 Anemia, unspecified; Z90.49 Acquired absence of other specified parts of digestive tract; Z98.890 Other specified postprocedural states; Z87.891 Personal history of nicotine dependence; Z88.0 Allergy status to penicillin; Z88.2 Allergy status to sulfonamides; Z88.8 Allergy status to other drugs, medicaments and biological substances; Z88.1 Allergy status to other antibiotic agents; Z79.899 Other long term (current) drug therapy
CPT/HCPCS: 0240U; 36415; 36416; 71045; 74176; 80048; 80053; 81003; 81015; 82274; 83605; 83690; 84484; 85025; 87040; 93005; 96365; 96368; C9113; J0456; J0696; J1650; J3490; J7050; Q0162

== ENCOUNTER 2020-12-19 19:39 | Emergency (ER) | payer MEDICARE, BC ==
[2020-12-19] MEDS ORDERED: Diazepam 10 MG/2 ML SYRINGE ONE (20:58)
== END 2020-12-19 21:35 | disposition home or self-care (01) ==
LOC: BURERS 19:39
DX: M62.838 Other muscle spasm (principal); G89.29 Other chronic pain; K21.9 Gastro-esophageal reflux disease without esophagitis; E78.2 Mixed hyperlipidemia; I10 Essential (primary) hypertension; Z87.891 Personal history of nicotine dependence; Z79.899 Other long term (current) drug therapy
CPT/HCPCS: 96372; 99283; J3360

== ENCOUNTER 2022-03-15 12:50 | Emergency (ER) | payer MEDICARE, BC ==
[2022-03-15] MEDS ORDERED: Bacitracin 1 PK ONE (13:47)
== END 2022-03-15 13:51 | disposition home or self-care (01) ==
LOC: BURERS 12:50
DX: S01.01XA Laceration without foreign body of scalp, initial encounter (principal); S30.0XXA Contusion of lower back and pelvis, initial encounter; S60.011A Contusion of right thumb without damage to nail, initial encounter; I10 Essential (primary) hypertension; K21.9 Gastro-esophageal reflux disease without esophagitis; E11.9 Type 2 diabetes mellitus without complications; E78.2 Mixed hyperlipidemia; W18.2XXA Fall in (into) shower or empty bathtub, initial encounter; Z87.891 Personal history of nicotine dependence; Z79.899 Other long term (current) drug therapy
CPT/HCPCS: 70450; 72131

== ENCOUNTER 2022-03-16 08:28 | Emergency (ER) | payer MEDICARE, BC ==
[2022-03-16] MEDS ORDERED: Ketorolac Tromethamine 30 MG/ML VIAL ONE (09:01)
== END 2022-03-16 09:24 | disposition home or self-care (01) ==
LOC: BURERS 08:28
DX: M62.830 Muscle spasm of back (principal); G89.29 Other chronic pain; I10 Essential (primary) hypertension; E11.9 Type 2 diabetes mellitus without complications; E78.2 Mixed hyperlipidemia; Z87.891 Personal history of nicotine dependence; Z79.899 Other long term (current) drug therapy
CPT/HCPCS: 96372; 99283; J1885

== ENCOUNTER 2022-11-14 14:59 | Outpatient (CLI) | payer MEDICARE, BC | END 2022-11-14 15:00 | disposition home or self-care (01) | LOC: BUREKG 14:59 | PROVIDERS: ATTEND Internal Medicine Cardiovascular Disease | DX: I48.0 Paroxysmal atrial fibrillation (principal) | CPT/HCPCS: 93005; 93010 ==

== ENCOUNTER 2023-05-02 13:30 | Emergency (ER) | payer MEDICARE, BC | END 2023-05-02 14:05 | disposition home or self-care (01) | LOC: BURERS 13:30 | DX: S82.841A Displaced bimalleolar fracture of right lower leg, initial encounter for closed fracture (principal); E78.00 Pure hypercholesterolemia, unspecified; I10 Essential (primary) hypertension; E11.9 Type 2 diabetes mellitus without complications; W18.30XA Fall on same level, unspecified, initial encounter; Z79.899 Other long term (current) drug therapy ==

== ENCOUNTER 2023-05-02 18:09 | Emergency (ER) | payer MEDICARE, BC ==
[2023-05-02] MEDS ORDERED: HYDROcodone/Acetaminophen 10/325 mg Tablet ONE (18:31)
[2023-05-02] MEDS ORDERED: Ondansetron ODT 4 MG TAB ONE (18:31)
== END 2023-05-02 19:55 | disposition home or self-care (01) ==
LOC: BURERS 18:09
DX: M79.604 Pain in right leg (principal); W18.30XA Fall on same level, unspecified, initial encounter; E78.00 Pure hypercholesterolemia, unspecified; I10 Essential (primary) hypertension; E11.9 Type 2 diabetes mellitus without complications; Z79.899 Other long term (current) drug therapy
CPT/HCPCS: Q0162

== ENCOUNTER 2023-11-21 10:02 | Emergency (ER) | payer MEDICARE, BC ==
[2023-11-21 10:20] LABS: Bilirubin Negative (Negative); Blood, Urine Trace (Negative); Glucose, Urine (Dipstick) Negative (Negative); Ketone, Urine Negative (Negative); Leukocyte Trace (Negative); Nitrite Negative (Negative); Protein, Urine (Dipstick) > or equal to 300 mg/dL (Neg-Trace); Urobilinogen 0.2 mg/dL (Less than 2)
[2023-11-21 10:23] LABS: Clarity Slightly Cloudy (Clear)
[2023-11-21 10:27] LABS: Bacteria/HPF 1+ HPF (None Seen); CAUTI Indications for Culture Acute Hematuria; RBC/HPF 0-3 HPF (0-3); WBC/HPF 0-3 HPF (0-3)
[2023-11-21 10:28] LABS: Urine Culture Reflex No No
[2023-11-21] MEDS ORDERED: Fluconazole 100 MG TAB ONE (10:43)
== END 2023-11-21 10:50 | disposition home or self-care (01) ==
LOC: BURERS 10:02
DX: N76.0 Acute vaginitis (principal); E11.9 Type 2 diabetes mellitus without complications; I10 Essential (primary) hypertension
CPT/HCPCS: 81001; 99283

== ENCOUNTER 2024-04-20 12:43 | Emergency (ER) | payer MEDICARE, BC ==
[~2024-04-20 12:43] MED LIST: Iopamidol 370 76% 100 ML VIAL ONE
[2024-04-20 13:22] LABS: #Monocytes 0.4 thou/uL (0.11-0.59); #Neutrophils 11.7 thou/uL (1.40-6.50); %Basophils 0.2 % (0.0-1.0); %Eosinophils 0.1 % (0.0-10.0); %Lymphocytes 7.3 % (21.0-51.0); %Neutrophils 89.5 % (42.0-75.0); Hematocrit 34.9 % (36.0-47.0); Hemoglobin 11.2 g/dL (12.0-16.0); Mean Corpuscular HGB CONC 32.2 g/dL (32.0-36.0); Mean Corpuscular Hemoglobin 30.5 pg (27.0-31.0); Mean Corpuscular Volume 94.9 fl (78.0-98.0); Platelet Count 269 10x3/uL (130-400); RBC Distribution Width 13.6 % (11.5-14.5); Red Blood Cell (RBC) Count 3.68 mill/uL (4.20-5.40); White Blood Cell (WBC) Count 13.1 10x3/uL (4.8-10.8)
[2024-04-20 13:46] LABS: ALT (SGPT) 21 U/L (8-55); AST (SGOT) 28 U/L (5-34); Alkaline Phosphatase 32 U/L (40-110); Anion Gap 16 mmol/L (10-20); BUN (Urea Nitrogen) 21 mg/dL (9.8-20.1); Bilirubin, Total 0.4 mg/dL (0.2-1.2); Calc. Creatinine Clearance 0 mL/min (70-130); Calcium 8.8 mg/dL (7.8-10.44); Carbon Dioxide 21 mmol/L (23-31); Chloride 104 mmol/L (98-107); Estimated GFR 34; Globulin 2.6 g/dL (2.4-3.5); Glucose 123 mg/dL (83-110); Potassium 3.9 mmol/L (3.5-5.1); Protein, Total 6.6 g/dL (5.8-8.1); Sodium 137 mmol/L (136-145)
== END 2024-04-20 15:39 | disposition home or self-care (01) ==
LOC: BURERS 12:43
DX: K52.9 Noninfective gastroenteritis and colitis, unspecified (principal); I10 Essential (primary) hypertension; E11.9 Type 2 diabetes mellitus without complications; E78.5 Hyperlipidemia, unspecified; Z79.899 Other long term (current) drug therapy
CPT/HCPCS: 74177; 80053; 85025; Q9967

== ENCOUNTER 2024-05-04 07:50 | Emergency (ER) | payer MEDICARE, BC ==
[2024-05-04 08:58] LABS: #Neutrophils 10.8 thou/uL (1.40-6.50); %Basophils 0.3 % (0.0-1.0); %Eosinophils 0.4 % (0.0-10.0); %Lymphocytes 7.9 % (21.0-51.0); %Neutrophils 83.5 % (42.0-75.0); Hematocrit 37.5 % (36.0-47.0); Mean Corpuscular HGB CONC 32.1 g/dL (32.0-36.0); Mean Corpuscular Hemoglobin 30.3 pg (27.0-31.0); Mean Corpuscular Volume 94.6 fl (78.0-98.0); Mean Platelet Volume 7.6 fL (7.4-10.4); Platelet Count 204 10x3/uL (130-400); RBC Distribution Width 13.5 % (11.5-14.5); Red Blood Cell (RBC) Count 3.96 mill/uL (4.20-5.40)
[2024-05-04 09:14] LABS: ALT (SGPT) 32 U/L (8-55); AST (SGOT) 22 U/L (5-34); Albumin 3.7 g/dL (3.4-4.8); Alkaline Phosphatase 33 U/L (40-110); Anion Gap 15 mmol/L (10-20); BUN (Urea Nitrogen) 30 mg/dL (9.8-20.1); Bilirubin, Total 0.5 mg/dL (0.2-1.2); Calc. Creatinine Clearance 0 mL/min (70-130); Calcium 9.3 mg/dL (7.8-10.44); Carbon Dioxide 24 mmol/L (23-31); Chloride 104 mmol/L (98-107); Estimated GFR 30; Globulin 2.5 g/dL (2.4-3.5); Glucose 136 mg/dL (83-110); Magnesium 2.2 mg/dL (1.6-2.6); Potassium 3.6 mmol/L (3.5-5.1); Protein, Total 6.2 g/dL (5.8-8.1); Sodium 139 mmol/L (136-145)
[2024-05-04 09:17] LABS: Troponin I 0.022 ng/mL (< 0.028)
[2024-05-04] MEDS ORDERED: Furosemide 40 MG (4 mL) VIAL ONE (09:42)
[2024-05-04 10:14] LABS: Bilirubin Negative (Negative); Blood, Urine Negative (Negative); Glucose, Urine (Dipstick) Negative (Negative); Ketone, Urine Negative (Negative); Leukocyte Small (Negative); Nitrite Negative (Negative); Protein, Urine (Dipstick) 30 mg/dL (Neg-Trace); Specific Gravity, Urine 1.015 (1.005-1.030); Urobilinogen 0.2 mg/dL (Less than 2)
[2024-05-04 10:20] LABS: Bacteria/HPF 3+ HPF (None Seen); CAUTI Indications for Culture Dysuria,urgency,freq; Clarity Cloudy (Clear); RBC/HPF 0-3 HPF (0-3); Squamous Epithelial 0-3 HPF (0-3)
[2024-05-04 10:21] LABS: Urine Culture Reflex Yes Yes
[2024-05-04] MEDS ORDERED: Sulfameth/Trimethoprim DS 800-160mg TAB ONE (10:27)
== END 2024-05-04 10:34 | disposition home or self-care (01) ==
LOC: BURERS 07:50
DX: N39.0 Urinary tract infection, site not specified (principal); I11.0 Hypertensive heart disease with heart failure; I50.9 Heart failure, unspecified; E11.9 Type 2 diabetes mellitus without complications
CPT/HCPCS: 71045; 80053; 81001; 83735; 83880; 84484; 85025; 87086; 93005; J1940; 36415; 87077; 87186; 96374

== ENCOUNTER 2024-06-21 08:40 | Emergency (ER) | payer MEDICARE, BC ==
[2024-06-21 09:41] LABS: #Basophils 0.1 thou/uL (0.0-0.2); #Lymphocytes 0.9 thou/uL (1.20-3.40); #Monocytes 0.5 thou/uL (0.11-0.59); #Neutrophils 8.3 thou/uL (1.40-6.50); %Basophils 0.7 % (0.0-1.0); %Eosinophils 0.3 % (0.0-10.0); %Lymphocytes 8.9 % (21.0-51.0); %Monocytes 4.6 % (0.0-10.0); %Neutrophils 85.5 % (42.0-75.0); Hematocrit 35.5 % (36.0-47.0); Hemoglobin 11.9 g/dL (12.0-16.0); Mean Corpuscular HGB CONC 33.5 g/dL (32.0-36.0); Mean Corpuscular Volume 92.6 fl (78.0-98.0); Platelet Count 206 10x3/uL (130-400); RBC Distribution Width 14.5 % (11.5-14.5); Red Blood Cell (RBC) Count 3.84 mill/uL (4.20-5.40); White Blood Cell (WBC) Count 9.8 10x3/uL (4.8-10.8)
[2024-06-21] MEDS ORDERED: Ondansetron PF 4 MG/2 ML Vial ONE ×2 (09:44→09:45)
[2024-06-21 09:49] LABS: Bilirubin Negative (Negative); Blood, Urine Trace (Negative); Glucose, Urine (Dipstick) Negative (Negative); Ketone, Urine Negative (Negative); Leukocyte Small (Negative); Nitrite Positive (Negative); Protein, Urine (Dipstick) 100 mg/dL (Neg-Trace); Specific Gravity, Urine 1.025 (1.005-1.030); Urobilinogen 0.2 mg/dL (Less than 2)
[2024-06-21 09:56] LABS: Bacteria/HPF 4+ HPF (None Seen); CAUTI Indications for Culture Dysuria,urgency,freq; Clarity Cloudy (Clear); Squamous Epithelial 0-3 HPF (0-3); WBC/HPF Greater Than 50 HPF (0-3)
[2024-06-21 09:57] LABS: ALT (SGPT) 19 U/L (8-55); AST (SGOT) 30 U/L (5-34); Albumin 3.8 g/dL (3.4-4.8); Alkaline Phosphatase 41 U/L (40-110); Anion Gap 15 mmol/L (10-20); BUN (Urea Nitrogen) 18 mg/dL (9.8-20.1); Bilirubin, Total 0.4 mg/dL (0.2-1.2); Calc. Creatinine Clearance 0 mL/min (70-130); Calcium 9.3 mg/dL (7.8-10.44); Carbon Dioxide 22 mmol/L (23-31); Chloride 108 mmol/L (98-107); Estimated GFR 30; Globulin 2.7 g/dL (2.4-3.5); Glucose 152 mg/dL (83-110); Lipase 69 U/L (8-78); Potassium 3.9 mmol/L (3.5-5.1); Protein, Total 6.5 g/dL (5.8-8.1); Sodium 141 mmol/L (136-145)
[2024-06-21 09:58] LABS: Urine Culture Reflex Yes Yes
[2024-06-21] MEDS ORDERED: cefTRIAXone (ROCEPHIN) 1 GM VIAL ONE (11:11)
== END 2024-06-21 11:57 | disposition home or self-care (01) ==
LOC: BURERS 08:40
DX: N39.0 Urinary tract infection, site not specified (principal); R11.2 Nausea with vomiting, unspecified; E78.00 Pure hypercholesterolemia, unspecified; I10 Essential (primary) hypertension; E11.9 Type 2 diabetes mellitus without complications; Z79.899 Other long term (current) drug therapy
CPT/HCPCS: 80053; 81001; 83605; 83690; 85025; 87077; 87086; 87186; 96361; 96365; 96375; J0696; J2405

== ENCOUNTER 2024-08-11 10:01 | Emergency (ER) | payer MEDICARE, BC, OTHER ==
[2024-08-11] MEDS ORDERED: Lidocaine/Transparent Dressing 1 EACH KIT ONE (10:20)
== END 2024-08-11 12:20 | disposition home or self-care (01) ==
LOC: BURERS 10:01
DX: S81.812A Laceration without foreign body, left lower leg, initial encounter (principal); I10 Essential (primary) hypertension; E11.9 Type 2 diabetes mellitus without complications
CPT/HCPCS: 99283

== ENCOUNTER 2024-09-02 17:34 | Emergency (ER) | payer MEDICARE, BC ==
[2024-09-02 18:45] LABS: #Lymphocytes 0.8 thou/uL (1.20-3.40); #Monocytes 1.4 thou/uL (0.11-0.59); #Neutrophils 14.2 thou/uL (1.40-6.50); %Basophils 0.3 % (0.0-1.0); %Eosinophils 0.1 % (0.0-10.0); %Lymphocytes 4.6 % (21.0-51.0); %Monocytes 8.7 % (0.0-10.0); %Neutrophils 86.3 % (42.0-75.0); Hemoglobin 9.3 g/dL (12.0-16.0); Mean Corpuscular HGB CONC 33.3 g/dL (32.0-36.0); Mean Corpuscular Hemoglobin 31.6 pg (27.0-31.0); Mean Corpuscular Volume 94.8 fl (78.0-98.0); Mean Platelet Volume 8.9 fL (7.4-10.4); Platelet Count 247 10x3/uL (130-400); RBC Distribution Width 12.4 % (11.5-14.5); Red Blood Cell (RBC) Count 2.95 mill/uL (4.20-5.40); White Blood Cell (WBC) Count 16.4 10x3/uL (4.8-10.8)
[2024-09-02 18:54] LABS: Bilirubin Negative (Negative); Blood, Urine Small (Negative); Clarity Slightly Cloudy (Clear); Glucose, Urine (Dipstick) Negative (Negative); Ketone, Urine Negative (Negative); Leukocyte Small (Negative); Nitrite Positive (Negative); Protein, Urine (Dipstick) > or equal to 300 mg/dL (Neg-Trace); pH, Urine 7.5 (5.0-9.0)
[2024-09-02] MEDS ORDERED: cefTRIAXone (ROCEPHIN) 2 GM VIAL ONE (18:55)
[2024-09-02 19:02] LABS: ALT (SGPT) 17 U/L (8-55); AST (SGOT) 20 U/L (5-34); Albumin 2.6 g/dL (3.4-4.8); Alkaline Phosphatase 62 U/L (40-110); Anion Gap 14 mmol/L (10-20); BUN (Urea Nitrogen) 26 mg/dL (9.8-20.1); Bilirubin, Total 0.5 mg/dL (0.2-1.2); Calc. Creatinine Clearance 0 mL/min (70-130); Calcium 8.2 mg/dL (7.8-10.44); Carbon Dioxide 21 mmol/L (23-31); Chloride 104 mmol/L (98-107); Estimated GFR 23; Globulin 3.4 g/dL (2.4-3.5); Glucose 128 mg/dL (83-110); Lipase 27 U/L (8-78); Potassium 4.3 mmol/L (3.5-5.1); Sodium 135 mmol/L (136-145)
[2024-09-02 19:05] LABS: Troponin I 0.024 ng/mL (< 0.028)
[2024-09-02 19:07] LABS: Bacteria/HPF 2+ HPF (None Seen); CAUTI Indications for Culture Acute Hematuria; RBC/HPF 0-3 HPF (0-3); Squamous Epithelial 0-3 HPF (0-3)
[2024-09-02 19:09] LABS: Urine Culture Reflex Yes Yes
[2024-09-02] MEDS ORDERED: Aspirin Chewable 81 MG TAB ONE (19:13)
== END 2024-09-02 23:21 | disposition short-term general hospital (02) ==
LOC: BURERS 17:34
DX: A41.9 Sepsis, unspecified organism (principal); I11.0 Hypertensive heart disease with heart failure; I50.9 Heart failure, unspecified; N39.0 Urinary tract infection, site not specified; E11.9 Type 2 diabetes mellitus without complications; E78.5 Hyperlipidemia, unspecified; Z79.899 Other long term (current) drug therapy
CPT/HCPCS: 51701; 71045; 80053; 81001; 83605; 83690; 83880; 84484; 85025; 87040; 87077; 87086; 87149; 87186; 93005; 96361; 96365; J0696

== ENCOUNTER 2024-09-30 09:30 | Emergency (ER) | payer MEDICARE, BC, OTHER ==
[2024-09-30] MEDS ORDERED: Acetaminophen 500 MG TAB ONE (10:50)
[2024-09-30 11:09] LABS: Bilirubin Negative (Negative); Blood, Urine Moderate (Negative); Glucose, Urine (Dipstick) Negative (Negative); Ketone, Urine Negative (Negative); Leukocyte Large (Negative); Nitrite Negative (Negative); Protein, Urine (Dipstick) 100 mg/dL (Neg-Trace); Urobilinogen 0.2 mg/dL (Less than 2)
[2024-09-30 11:15] LABS: Clarity Cloudy (Clear)
[2024-09-30 11:16] LABS: Bacteria/HPF 1+ HPF (None Seen); CAUTI Indications for Culture Dysuria,urgency,freq; Squamous Epithelial 0-3 HPF (0-3); WBC/HPF Greater Than 50 HPF (0-3)
[2024-09-30 11:17] LABS: Urine Culture Reflex Yes Yes
== END 2024-09-30 11:17 | disposition home or self-care (01) ==
LOC: BURERS 09:30
DX: S42.255A Nondisplaced fracture of greater tuberosity of left humerus, initial encounter for closed fracture (principal); I10 Essential (primary) hypertension; E11.9 Type 2 diabetes mellitus without complications; E78.5 Hyperlipidemia, unspecified; Z79.899 Other long term (current) drug therapy; W19.XXXA Unspecified fall, initial encounter
CPT/HCPCS: 81001; 87086; 99283

== ENCOUNTER 2025-04-18 17:23 | Inpatient (IN) | payer MEDICARE, BC ==
[2025-04-18] MEDS: predniSONE 20 MG TAB PO SCH (21:06)
[2025-04-18] MEDS: QUEtiapine 25 MG TAB PO SCH (21:19)
[2025-04-18] MEDS: Gabapentin 100 MG CAP PO SCH (21:19)
[2025-04-18] MEDS: Benzonatate 100 MG CAP PO SCH (21:20)
[2025-04-18] MEDS: Rosuvastatin 10 MG TAB PO SCH (21:20)
[2025-04-18] MEDS: Heparin 5,000 UNITS/ML VIAL SC SCH (21:21)
[2025-04-18] MEDS: Melatonin 3 MG TAB PO PRN (22:31)
[2025-04-18] MEDS: HYDROcodone/Acetaminophen 5/325 mg Tablet PO PRN (23:15)
[2025-04-19] MEDS: Transdermal Patch Removal TOP SCH (00:48)
[2025-04-19 06:04] LABS: ALT (SGPT) 58 U/L (Less than 34); AST (SGOT) 52 U/L (11-34); Albumin 3.6 g/dL (3.1-4.5); Alkaline Phosphatase 96 U/L (40-110); Anion Gap 17 mmol/L (10-20); BUN (Urea Nitrogen) 24 mg/dL (9.8-20.1); Bilirubin, Total 0.3 mg/dL (0.3-1.2); Calc. Creatinine Clearance 12 mL/min (70-130); Calcium 8.8 mg/dL (7.8-10.44); Carbon Dioxide 24 mmol/L (23-31); Chloride 99 mmol/L (98-107); Globulin 2.8 g/dL (2.4-3.5); Glucose 110 mg/dL (83-110); Potassium 3.6 mmol/L (3.5-5.1); Sodium 136 mmol/L (136-145)
[2025-04-19 06:22] LABS: #Basophils 0.1 thou/uL (0.0-0.2); #Eosinophils 0.0 thou/uL (0.0-0.7); #Lymphocytes 1.4 thou/uL (1.20-3.40); #Monocytes 1.1 thou/uL (0.11-0.59); #Neutrophils 5.5 thou/uL (1.40-6.50); %Basophils 1.1 % (0.0-1.0); %Eosinophils 0.0 % (0.0-10.0); %Lymphocytes 17.0 % (21.0-51.0); %Monocytes 14.0 % (0.0-10.0); %Neutrophils 67.9 % (42.0-75.0); Hematocrit 28.9 % (36.0-47.0); Hemoglobin 9.2 g/dL (12.0-16.0); Mean Corpuscular Hemoglobin 29.6 pg (27.0-31.0); Mean Corpuscular Volume 93.6 fl (78.0-98.0); Platelet Count 255 10x3/uL (130-400); Red Blood Cell (RBC) Count 3.09 mill/uL (4.20-5.40); White Blood Cell (WBC) Count 8.0 10x3/uL (4.8-10.8)
[2025-04-19] MEDS: Folic Acid/Vit B Comp W-C PO SCH (08:56)
[2025-04-19] MEDS: CO Q-10 CAPSULE 100 MG PO SCH (08:58)
[2025-04-19] MEDS: Pantoprazole 40 MG DR.TAB PO SCH (08:58)
[2025-04-19] MEDS: Torsemide 20 MG TAB PO SCH (08:58)
[2025-04-19] MEDS: predniSONE 20 MG TAB PO SCH (08:58)
[2025-04-19] MEDS ORDERED: predniSONE 20 MG TAB PO SCH (09:00)
[2025-04-19] MEDS: Guaifenesin DM 100-10/5 ML UDCUP PO PRN (10:07)
[2025-04-22] MEDS: EPOETIN ALFA-EPBX 10,000 UNITS/ML VIAL SC SCH (17:48)
[2025-04-22] MEDS: Transdermal Patch Removal TOP SCH (21:19)
[2025-04-23] MEDS: Transdermal Patch Removal TOP SCH ×2 (08:00→22:00)
[2025-04-25] MEDS: Acetaminophen 325 MG TAB PO PRN (10:38)
[2025-04-25] MEDS: Torsemide 20 MG TAB PO SCH (14:00)
[2025-04-26] MEDS: dilTIAZem 30 MG TAB PO SCH (19:12)
[2025-04-26] MEDS: QUEtiapine 25 MG TAB PO SCH (21:19)
[2025-04-27] MEDS: dilTIAZem 30 MG TAB PO SCH ×2 (08:30→17:27)
[2025-04-27] MEDS: QUEtiapine 25 MG TAB PO SCH (08:48)
[2025-04-28 05:13] LABS: Hematocrit 23.6 % (36.0-47.0); Hemoglobin 7.7 g/dL (12.0-16.0); Platelet Count 169 10x3/uL (130-400)
[2025-04-28 05:18] LABS: Calc. Creatinine Clearance 13.0 mL/min (70-130)
[2025-05-01] MEDS ORDERED: Iopamidol 370 76% 100 ML VIAL ONE (11:17)
[2025-05-01 17:42] LABS: Glucose, Urine (Dipstick) Negative (Negative); Leukocyte Moderate (Negative); Protein, Urine (Dipstick) 100 mg/dL (Neg-Trace); Specific Gravity, Urine 1.010 (1.005-1.030)
[2025-05-01 17:50] LABS: Bacteria/HPF 4+ HPF (None Seen); CAUTI Indications for Culture Dysuria,urgency,freq; RBC/HPF None Seen HPF (0-3); WBC/HPF Greater Than 50 HPF (0-3)
[2025-05-01 17:51] LABS: Urine Culture Reflex Yes Yes
[2025-05-01 19:59] LABS: #Basophils 0.2 thou/uL (0.0-0.2); #Eosinophils 0.0 thou/uL (0.0-0.7); #Lymphocytes 0.8 thou/uL (1.20-3.40); #Monocytes 1.1 thou/uL (0.11-0.59); #Neutrophils 12.7 thou/uL (1.40-6.50); %Basophils 1.7 % (0.0-1.0); %Eosinophils 0.1 % (0.0-10.0); %Lymphocytes 5.4 % (21.0-51.0); %Monocytes 7.3 % (0.0-10.0); %Neutrophils 85.5 % (42.0-75.0); Hematocrit 25.8 % (36.0-47.0); Hemoglobin 8.5 g/dL (12.0-16.0); Mean Corpuscular Hemoglobin 30.5 pg (27.0-31.0); Mean Corpuscular Volume 92.8 fl (78.0-98.0); Platelet Count 201 10x3/uL (130-400); Red Blood Cell (RBC) Count 2.78 mill/uL (4.20-5.40); White Blood Cell (WBC) Count 14.8 10x3/uL (4.8-10.8)
[2025-05-01 20:06] LABS: INR-International Normal Ratio 1.2; Prothrombin Time 14.9 sec (12.0-14.7)
[2025-05-01 20:07] LABS: PTT 34.0 sec (22.9-36.1)
[2025-05-01 20:16] LABS: ALT (SGPT) 43 U/L (Less than 34); AST (SGOT) 46 U/L (11-34); Albumin 3.6 g/dL (3.1-4.5); Alkaline Phosphatase 87 U/L (40-110); Anion Gap 19 mmol/L (10-20); BUN (Urea Nitrogen) 53 mg/dL (9.8-20.1); Bilirubin, Total 0.7 mg/dL (0.3-1.2); CK (CPK) 35 U/L (29-168); Calc. Creatinine Clearance 12 mL/min (70-130); Calcium 9.4 mg/dL (7.8-10.44); Carbon Dioxide 25 mmol/L (23-31); Chloride 92 mmol/L (98-107); Globulin 3.6 g/dL (2.4-3.5); Glucose 231 mg/dL (83-110); Magnesium 1.8 mg/dL (1.6-2.6); Potassium 3.8 mmol/L (3.5-5.1); Sodium 132 mmol/L (136-145); Troponin I 0.055 ng/mL (< 0.028)
[2025-05-01] MEDS: Cefdinir 300 MG CAP PO SCH (23:38)
[2025-05-01 23:48] LABS: Troponin I 0.053 ng/mL (< 0.028)
[2025-05-02] MEDS: Cefdinir 300 MG CAP PO SCH (18:42)
[2025-05-06 19:49] LABS: Glucose, Urine (Dipstick) Negative (Negative); Leukocyte Moderate (Negative); Protein, Urine (Dipstick) 100 mg/dL (Neg-Trace); Specific Gravity, Urine 1.015 (1.005-1.030)
[2025-05-06 19:55] LABS: Bacteria/HPF 3+ HPF (None Seen); CAUTI Indications for Culture Dysuria,urgency,freq; RBC/HPF Greater than 50 HPF (0-3)
[2025-05-06 20:01] LABS: Urine Culture Reflex Yes Yes
[2025-05-09 10:31] LABS: #Basophils 0.1 thou/uL (0.0-0.2); #Eosinophils 0.0 thou/uL (0.0-0.7); #Lymphocytes 0.9 thou/uL (1.20-3.40); #Monocytes 0.9 thou/uL (0.11-0.59); #Neutrophils 8.8 thou/uL (1.40-6.50); %Basophils 1.1 % (0.0-1.0); %Eosinophils 0.3 % (0.0-10.0); %Lymphocytes 8.4 % (21.0-51.0); %Monocytes 8.5 % (0.0-10.0); %Neutrophils 81.7 % (42.0-75.0); Hematocrit 26.4 % (36.0-47.0); Hemoglobin 8.3 g/dL (12.0-16.0); Mean Corpuscular Hemoglobin 29.2 pg (27.0-31.0); Mean Corpuscular Volume 93.4 fl (78.0-98.0); Platelet Count 154 10x3/uL (130-400); Red Blood Cell (RBC) Count 2.83 mill/uL (4.20-5.40); White Blood Cell (WBC) Count 10.8 10x3/uL (4.8-10.8)
[2025-05-09 10:46] LABS: Anion Gap 18 mmol/L (10-20); BUN (Urea Nitrogen) 52 mg/dL (9.8-20.1); Calc. Creatinine Clearance 12 mL/min (70-130); Calcium 9.0 mg/dL (7.8-10.44); Carbon Dioxide 24 mmol/L (23-31); Chloride 94 mmol/L (98-107); Glucose 149 mg/dL (83-110); Potassium 4.4 mmol/L (3.5-5.1); Sodium 132 mmol/L (136-145)
[2025-05-09 21:04] LABS: Anion Gap 19 mmol/L (10-20); BUN (Urea Nitrogen) 22 mg/dL (9.8-20.1); Calc. Creatinine Clearance 18 mL/min (70-130); Calcium 8.9 mg/dL (7.8-10.44); Carbon Dioxide 28 mmol/L (23-31); Chloride 94 mmol/L (98-107); Glucose 157 mg/dL (83-110); Magnesium 1.9 mg/dL (1.6-2.6); Potassium 3.6 mmol/L (3.5-5.1); Sodium 137 mmol/L (136-145)
[2025-05-09] MEDS: Sulfamethoxazole/Trimethoprim 800-160mg/20 ML UDCUP PO SCH (21:24)
[2025-05-10 16:51] VITALS: BMI 20.3
[2025-05-11 05:58] VITALS: BMI 20.4
[2025-05-12] MEDS: QUEtiapine 25 MG TAB PO SCH (21:16)
[2025-05-13] MEDS: Melatonin 3 MG TAB PO PRN (21:16)
[2025-05-15 05:45] VITALS: TEMP 98
[2025-05-15 12:47] VITALS: BP 121/80
== END 2025-05-15 12:30 | disposition short-term general hospital (02) | DRG 947 ==
LOC: BURMED 18:00
PROVIDERS: ADMIT Family Medicine; ATTEND Family Medicine
DX: R53.81 Other malaise (principal); N18.6 End stage renal disease; I50.32 Chronic diastolic (congestive) heart failure; I13.2 Hypertensive heart and chronic kidney disease with heart failure and with stage 5 chronic kidney disease, or end stage renal disease; N39.0 Urinary tract infection, site not specified; E78.5 Hyperlipidemia, unspecified; I48.0 Paroxysmal atrial fibrillation; Z99.2 Dependence on renal dialysis; Z88.1 Allergy status to other antibiotic agents; Z88.2 Allergy status to sulfonamides; Z88.8 Allergy status to other drugs, medicaments and biological substances; Z79.899 Other long term (current) drug therapy; D63.1 Anemia in chronic kidney disease; Z90.49 Acquired absence of other specified parts of digestive tract; Z98.51 Tubal ligation status; Z98.890 Other specified postprocedural states; Z66 Do not resuscitate; Z79.01 Long term (current) use of anticoagulants; S82.832D Other fracture of upper and lower end of left fibula, subsequent encounter for closed fracture with routine healing
CPT/HCPCS: 36415; 36416; 70450; 71260; 72125; 74177; 80048; 80053; 81001; 82550; 82565; 83735; 84100; 84484; 85014; 85018; 85025; 85049; 85610; 85730; 87077; 87086; 87186; J1644; J7030; J7512; J7620; Q0162; Q5106; Q9967

== ENCOUNTER 2025-06-08 12:15 | Inpatient (IN) | payer OTHER ==
[2025-06-08] MEDS ORDERED: Ondansetron PF 4 MG/2 ML Vial IVP PRN (14:14)
[2025-06-08] MEDS ORDERED: Bisacodyl 10 MG SUPP PR PRN (14:16)
[2025-06-08 17:13] VITALS: BMI 20.7
[2025-06-09 06:05] VITALS: BP 140/58; TEMP 98.4
[2025-06-09 16:58] VITALS: BMI 20.7
[2025-06-10] MEDS ORDERED: Scopolamine 1 mg/72 hour Patch TOP PRN (21:32)
== END 2025-06-09 18:34 | disposition expired | DRG 951 ==
LOC: BURMED 12:15
PROVIDERS: ADMIT Family Medicine; ATTEND Family Medicine
DX: Z51.5 Encounter for palliative care (principal); N18.6 End stage renal disease; I50.33 Acute on chronic diastolic (congestive) heart failure; I13.2 Hypertensive heart and chronic kidney disease with heart failure and with stage 5 chronic kidney disease, or end stage renal disease; J96.11 Chronic respiratory failure with hypoxia; J90 Pleural effusion, not elsewhere classified; E78.5 Hyperlipidemia, unspecified; D72.829 Elevated white blood cell count, unspecified; I48.91 Unspecified atrial fibrillation; E11.22 Type 2 diabetes mellitus with diabetic chronic kidney disease; Z88.8 Allergy status to other drugs, medicaments and biological substances; Z88.1 Allergy status to other antibiotic agents; Z99.81 Dependence on supplemental oxygen; Z88.5 Allergy status to narcotic agent; Z90.49 Acquired absence of other specified parts of digestive tract; Z98.890 Other specified postprocedural states; Z79.899 Other long term (current) drug therapy; Z98.51 Tubal ligation status
CPT/HCPCS: J2060; J2270; J2272